=== PATIENT | female | born 1940 | race Caucasian/White ===

== ENCOUNTER 2020-06-08 12:26 | Emergency (ER) | payer MEDICARE ==
[2020-06-08 13:42] LABS: #Lymphocytes 1.7 thou/uL (1.20-3.40); #Monocytes 0.6 thou/uL (0.11-0.59); %Basophils 0.6 % (0.0-1.0); %Lymphocytes 26.6 % (21.0-51.0); %Monocytes 9.3 % (0.0-10.0); %Neutrophils 63.5 % (42.0-75.0); Hemoglobin 14.8 g/dL (12.0-16.0); Mean Corpuscular HGB CONC 32.2 g/dL (32.0-36.0); Mean Corpuscular Hemoglobin 28.7 pg (27.0-31.0); Mean Corpuscular Volume 89.1 fL (78.0-98.0); Mean Platelet Volume 9.4 fL (7.4-10.4); Platelet Count 157 thou/uL (130-400); RBC Distribution Width 11.7 % (11.5-14.5); Red Blood Cell (RBC) Count 5.16 mill/uL (4.20-5.40); White Blood Cell (WBC) Count 6.3 thou/uL (4.8-10.8)
[2020-06-08] MEDS ORDERED: Lidocaine Viscous Sol 2% 15 ml UD Cup ONE (13:47)
[2020-06-08] MEDS ORDERED: Ondansetron ODT 4 MG TAB ONE (13:47)
[2020-06-08] MEDS ORDERED: Famotidine 20 MG TAB ONE (13:47)
[2020-06-08] MEDS ORDERED: Mag-Al Plus 1200 MG/1200 MG/120 MG/30 ML UDCUP ONE (13:47)
[2020-06-08 13:59] LABS: ALT (SGPT) 30 U/L (8-55); AST (SGOT) 24 U/L (5-34); Albumin 3.5 g/dL (3.4-4.8); Alkaline Phosphatase 45 U/L (40-110); Anion Gap 20 mmol/L (10-20); BUN (Urea Nitrogen) 21 mg/dL (9.8-20.1); Bilirubin, Total 0.4 mg/dL (0.2-1.2); Calc. Creatinine Clearance 0 mL/min (70-130); Calcium 9.1 mg/dL (7.8-10.44); Carbon Dioxide 24 mmol/L (23-31); Chloride 99 mmol/L (98-107); Estimated GFR-MDRD 49; Globulin 3.3 g/dL (2.4-3.5); Glucose 392 mg/dL (83-110); Lipase 13 U/L (8-78); Protein, Total 6.8 g/dL (6.0-8.3); Sodium 140 mmol/L (136-145)
[2020-06-08 14:11] LABS: Potassium 2.8 mmol/L (3.5-5.1)
[2020-06-08] MEDS ORDERED: Aspirin 325 MG TAB ONE (14:25)
[2020-06-08] MEDS ORDERED: Potassium Chloride 20 MEQ TAB ONE (14:25)
[2020-06-08 14:43] LABS: CKMB 0.9 ng/mL (0-6.6)
--- NOTE | 2020-06-08 15:15 | RAD ---
PORTABLE CHEST: 06/08/20 HISTORY: Dyspnea. No comparison. The lungs appear clear of infiltrate. Heart is mildly prominent. Vascular markings are upper normal. IMPRESSION: No focal consolidation or confluent infiltrate. Hazy ground glass infiltrates in the mid lung pavon cannot be completely excluded if there is concern of COVID pneumonia. Recommend follow-up if symptoms persist. POS: OFF
[2020-06-08] MEDS ORDERED: Magnesium Oxide 400 MG TAB PO ONE (16:06)
[2020-06-08 16:27] LABS: Bilirubin Negative (Negative); Blood, Urine Trace (Negative); Clarity Cloudy (Clear); Glucose, Urine (Dipstick) >=1000 mg/dL (Negative); Ketone, Urine 40 mg/dL (Negative); Leukocyte Negative (Negative); Nitrite Negative (Negative); Protein, Urine (Dipstick) > or equal to 300 mg/dL (Neg-Trace); Urobilinogen 0.2 mg/dL (Less than 2); pH, Urine 5.5 (5.0-9.0)
[2020-06-08 16:28] LABS: Bacteria/HPF 4+ HPF (None Seen); RBC/HPF 0-3 HPF (0-3); Specific Gravity, Urine 1.028 (1.002-1.036); WBC/HPF Greater than 50 HPF (0-3)
[2020-06-08] MEDS ORDERED: cefTRIAXone\\ROCEPHIN 1 GM VIAL ONE (16:39)
== END 2020-06-08 16:50 | disposition short-term general hospital (02) ==
LOC: MADERS 12:26
DX: E87.6 Hypokalemia (principal); R94.31 Abnormal electrocardiogram [ECG] [EKG]; N39.0 Urinary tract infection, site not specified; E11.9 Type 2 diabetes mellitus without complications; I10 Essential (primary) hypertension; Z79.82 Long term (current) use of aspirin; Z79.899 Other long term (current) drug therapy; Z79.4 Long term (current) use of insulin
CPT/HCPCS: 71045; 80053; 81003; 81015; 82553; 83690; 83735; 84484; 85025; 87077; 87086; 87186; 93005; 96374; J0696; Q0162

== ENCOUNTER 2020-06-20 14:37 | Inpatient (IN) | payer MEDICARE ==
[2020-06-20 16:33] VITALS: BMI 35.2
[2020-06-20] MEDS ORDERED: Loratadine 10 MG TAB PO PRN (17:36)
[2020-06-20] MEDS ORDERED: Loperamide HCl 2 MG CAP PO PRN (17:37)
[2020-06-20] MEDS ORDERED: Sodium Chloride 0.65% Nasal 44 ML BOT EA NARE PRN (17:41)
[2020-06-20] MEDS ORDERED: Senokot S 8.6-50 MG TAB PO PRN (17:42)
[2020-06-20] MEDS ORDERED: Dextrose 50% Abboject 50 ML SYRINGE IVP PRN (17:45)
[2020-06-20] MEDS ORDERED: Dextrose 5% in Water 1,000 ML IV PRN (17:45)
[2020-06-20] MEDS ORDERED: HumaLOG 300 UNITS/3 ML VIAL SC PRN (17:45)
[2020-06-20] MEDS: Simvastatin 5 MG TAB PO SCH (20:09)
[2020-06-20] MEDS: Melatonin 3 MG TAB PO SCH (20:09)
[2020-06-21 05:40] LABS: #Basophils 0.2 thou/uL (0.0-0.2); #Eosinphils 0.4 thou/uL (0.0-0.7); #Lymphocytes 3.5 thou/uL (1.20-3.40); #Monocytes 1.2 thou/uL (0.11-0.59); #Neutrophils 7.6 thou/uL (1.40-6.50); %Basophils 1.3 % (0.0-1.0); %Eosinophils 3.2 % (0.0-10.0); %Lymphocytes 27.1 % (21.0-51.0); %Monocytes 9.1 % (0.0-10.0); %Neutrophils 59.3 % (42.0-75.0); Hemoglobin 14.8 g/dL (12.0-16.0); Mean Corpuscular HGB CONC 33.1 g/dL (32.0-36.0); Mean Corpuscular Hemoglobin 28.8 pg (27.0-31.0); Mean Platelet Volume 8.7 fL (7.4-10.4); Platelet Count 322 thou/uL (130-400); RBC Distribution Width 11.5 % (11.5-14.5); Red Blood Cell (RBC) Count 5.13 mill/uL (4.20-5.40); White Blood Cell (WBC) Count 12.9 thou/uL (4.8-10.8)
[2020-06-21 05:54] LABS: ALT (SGPT) 40 U/L (8-55); AST (SGOT) 19 U/L (5-34); Alkaline Phosphatase 41 U/L (40-110); Anion Gap 17 mmol/L (10-20); BUN (Urea Nitrogen) 56 mg/dL (9.8-20.1); Bilirubin, Total 0.8 mg/dL (0.2-1.2); Calc. Creatinine Clearance 59 mL/min (70-130); Calcium 9.4 mg/dL (7.8-10.44); Carbon Dioxide 22 mmol/L (23-31); Chloride 103 mmol/L (98-107); Globulin 3.2 g/dL (2.4-3.5); Glucose 159 mg/dL (83-110); Potassium 3.6 mmol/L (3.5-5.1); Protein, Total 6.2 g/dL (6.0-8.3); Sodium 138 mmol/L (136-145)
[2020-06-21] MEDS: HumaLOG 300 UNITS/3 ML VIAL SC SCH ×3 (08:48→17:16)
[2020-06-21] MEDS: Lantus 1000 UNITS/10 ML VIAL SC SCH ×2 (08:48→20:50)
[2020-06-21] MEDS: Fluticasone Propionate Nasal Spray 16 gm Bottle NASAL SCH (08:51)
[2020-06-21] MEDS: Aspirin Chewable 81 MG TAB PO SCH (08:52)
[2020-06-21] MEDS: Alogliptin 25 MG TAB PO SCH (08:52)
[2020-06-21] MEDS: Enoxaparin Sodium 40 MG/0.4 ML SYRINGE SC SCH (08:52)
[2020-06-21] MEDS: Amlodipine 5 MG TAB PO SCH (08:52)
[2020-06-21] MEDS: Losartan Potassium 50 MG TAB PO SCH (08:52)
[2020-06-21] MEDS: Saccharomyces boulardii 250 MG CAP PO SCH (08:53)
[2020-06-21] MEDS: Cefdinir 300 MG CAP PO SCH (08:53)
[2020-06-21] MEDS: Furosemide 20 MG TAB PO SCH (08:53)
[2020-06-21] MEDS: Fish Oil 1,000 MG CAP PO SCH (08:53)
[2020-06-21] MEDS: Hydrochlorothiazide 25 MG TAB PO SCH (08:53)
[2020-06-21] MEDS: Famotidine 20 MG TAB PO SCH (08:53)
[2020-06-21] MEDS ORDERED: Lantus 1000 UNITS/10 ML VIAL SC SCH (09:00)
[2020-06-21 11:48] LABS: Hemoglobin A1c 10.6 % (4.0-6.0)
[2020-06-21] MEDS: Melatonin 3 MG TAB PO SCH (20:42)
[2020-06-21] MEDS: Simvastatin 5 MG TAB PO SCH (20:42)
[2020-06-22] MEDS: Levothyroxine Sodium 25 MCG TAB PO SCH (05:41)
[2020-06-22] MEDS: HumaLOG 300 UNITS/3 ML VIAL SC SCH ×3 (07:52→17:16)
[2020-06-22] MEDS: Fish Oil 1,000 MG CAP PO SCH (07:58)
[2020-06-22] MEDS: Losartan Potassium 50 MG TAB PO SCH (07:58)
[2020-06-22] MEDS: Cefdinir 300 MG CAP PO SCH (07:58)
[2020-06-22] MEDS: Famotidine 20 MG TAB PO SCH (07:58)
[2020-06-22] MEDS: Amlodipine 5 MG TAB PO SCH (07:59)
[2020-06-22] MEDS: Saccharomyces boulardii 250 MG CAP PO SCH (07:59)
[2020-06-22] MEDS: Alogliptin 25 MG TAB PO SCH (07:59)
[2020-06-22] MEDS: Aspirin Chewable 81 MG TAB PO SCH (07:59)
[2020-06-22] MEDS: Enoxaparin Sodium 40 MG/0.4 ML SYRINGE SC SCH (07:59)
[2020-06-22] MEDS: Hydrochlorothiazide 25 MG TAB PO SCH (07:59)
[2020-06-22] MEDS: Furosemide 20 MG TAB PO SCH (07:59)
[2020-06-22] MEDS: Lantus 1000 UNITS/10 ML VIAL SC SCH ×2 (08:06→20:44)
[2020-06-22] MEDS: Fluticasone Propionate Nasal Spray 16 gm Bottle NASAL SCH (08:06)
[2020-06-22] MEDS: Melatonin 3 MG TAB PO SCH (20:44)
[2020-06-22] MEDS: Simvastatin 5 MG TAB PO SCH (20:44)
--- NOTE | 2020-06-23 05:11 | HP ---
Admitted to [facility] on 06/20/2020 CHIEF COMPLAINT: Weakness following hospitalization for COVID pneumonia. HISTORY OF PRESENT ILLNESS: The patient is a 79-year-old white female who lives alone and is independent of her ADLs. She has a history of diabetes, that is insulin dependent; hypertension; peripheral neuropathy; chronic kidney disease; hypothyroidism; and she has problems with urinary incontinence. The patient was hospitalized at [facility] from 06/08 until 06/20/2020 for COVID pneumonia, complicated by hypoxic respiratory failure. She was treated with 5 days of remdesivir and required supplemental O2. She received IV dexamethasone and azithromycin and cefdinir. She gradually improved. Her O2 saturation improved, where she no longer required the supplemental O2. She was found to have urinary tract infection with E coli with contreras-sensitivity. She had originally received IV antibiotics, which covered this, and then was switched to oral cefdinir without any problems from this. She was left very weak and not at a point where she could return to independent living. It was elected to move her to [facility] for physical therapy and occupational therapy in an effort to improve her deconditioning and general functional capability. Her JGFN-RYKRW-5 rapid RNA test was positive on 06/08. She had completed over a 10-day period of isolation and was feeling better and free of any fever for the last several days prior to her arrival here at [facility]. The patient was seen early on the morning of 06/21, said she was feeling a lot better, she was not coughing, she had not had any fever, she had not been short of breath, she was just weak. She said her appetite has been good. She said at home she takes Levemir 70 units twice a day and also she takes NovoLog 25 units before meals. During this recent hospitalization, she has just been receiving 70 units of Lantus once a day and the aggressive sliding scale. PAST HISTORY: 1. Diabetes, insulin requiring. 2. Hypertension. 3. Urinary incontinence. 4. Chronic kidney disease. 5. Moderate hyperlipidemia. 6. Hypothyroidism. 7. History of colon polyps, removed. 8. The patient has had a hysterectomy. 9. Laparoscopic cholecystectomy. 10. Colonoscopy with removal of cancerous nodule in 2016. 11. Colonoscopy in 2017, normal. MEDICATIONS: Present medicines: 1. Januvia 100 mg once a day. 2. Amlodipine 5 mg daily. 3. Aspirin 81 mg daily. 4. Cefdinir 600 mg daily. 5. Famotidine 20 mg daily. 6. Fish oil 1000 mg daily. 7. Flonase nasal inhaler two sprays in each nostril daily. 8. Furosemide 20 mg daily. 9. Hydrochlorothiazide 12.5 mg daily. 10. Levemir 70 units subcutaneously b.i.d. 11. NovoLog 25 units before meals. 12. Levothyroxine 25 mcg daily. 13. Imodium 2 mg b.i.d. p.r.n. diarrhea. 14. Claritin 10 mg daily as needed for nasal congestion. 15. Losartan 100 mg daily. 16. Melatonin 6 mg at bedtime. 17. Metoprolol succinate 25 mg daily. 18. Florastor 250 mg daily. 19. Senokot-S two b.i.d. p.r.n. 20. Simvastatin [address] [place] nasal spray two sprays in each nostril q.i.d. as needed. ALLERGIES: NO KNOWN ALLERGIES. IMMUNIZATIONS: The patient received a Pneumovax 23 this morning IM. REVIEW OF SYSTEMS: GENERAL: The patient said that the last few day she has had no fever, she has felt better. She does not know if her weight has changed. EARS, NOSE, AND THROAT: The patient said she is not having any nasal congestion or drainage. She has had no change in her vision. PULMONARY: The patient said her breathing is good. She is not coughing. She does not feel congested. CARDIOVASCULAR: The patient has had no chest pain. GI: The patient has had no nausea or vomiting. She did have some loose stools, but these are better. The patient also was having a little incontinence of stools. : The patient is incontinent of urine. NEUROLOGIC: The patient denies any headaches. The patient has not had any confusional problems. She has some generalized weakness, that is nonfocal. ADLS: The patient lives independently and drives and she manages all her ADLs. She does have trouble with urinary incontinence and sometimes fecal incontinence. HABITS: Alcohol, none. Tobacco, none. SOCIAL HISTORY: The patient is , who lives alone. PHYSICAL EXAMINATION: GENERAL: A very pleasant 79-year-old white female who is sitting up in bed. She is alert and oriented x3, recognizes me and understands where she is and what has recently happened to her. VITAL SIGNS: Temperature 98.5, pulse 65, respirations 18, O2 saturation 93% on room air, and blood pressure 120/72. Her weight is 204 and her height is 65 inches. HEAD: Normocephalic and atraumatic. EARS: TMs are clear. EYES: Pupils are equal, round, and reactive. Sclerae nonicteric. NOSE: Normal. MOUTH AND THROAT: Normal. NECK: Carotids are equal and strong. No bruits. Thyroid not enlarged. LUNGS: Clear. HEART: Regular rate. No murmurs. ABDOMEN: Soft. No organomegaly. No areas of tenderness. EXTREMITIES: Lower extremities have no edema. SKIN: There is no rash. NEUROLOGIC: The patient is alert and oriented x3, has no focal weakness but generalized weakness. LABORATORY DATA: hemoglobin and hematocrit 14.8 and 44.6, white blood cell count 12,900 with 59% segs and 27% lymphocytes, and platelet count of 322,000. Her sodium 139, potassium 3.6, BUN 56, creatinine 1.15, and GFR 46. Her lab from 08/2019 showed BUN of 21, creatinine 0.96, and GFR 56. IMPRESSION: 1. Generalized weakness and deconditioning: a. Following hospitalization for COVID pneumonia. 2. Hospitalized at [facility] from 06/08 until 06/20/2020 for COVID pneumonia. a. ADPX-FEESB-3 rapid RNA test positive on 06/08. b. Treated with remdesivir, IV antibiotics, IV dexamethasone, and supplemental O2. c. COVID pneumonia clinically resolved. d. Completed a 10-day period of isolation. 3. Diabetes, type 2, insulin dependent. a. History of poor control. 4. Hypertension. 5. Urinary tract infection. a. With Escherichia coli with contreras-sensitivity. b. Completing a course of cefdinir. 6. Hypothyroidism. 7. Hyperlipidemia. 8. Peripheral neuropathy. 9. Urinary incontinence. PLAN: The patient has been admitted to [facility] for physical therapy and occupational therapy to try to help her convalesce from this recent COVID infection, complicated by the COVID pneumonia. Her functional capabilities have been markedly diminished as she had been living independently. She will be placed back on her usual schedule of Levemir and NovoLog. We will start her on 60 units of Lantus b.i.d. instead of the 70 and work this back up as if needed. We will start her on 20 units of NovoLog before meals instead of the 25 and work this up if needed. We will stop the sliding scale. We will complete an additional 5 days of the cefdinir for the UTI. We will continue her routine medicines. We will place her on Lovenox as a DVT prophylaxis, particularly with this hyper-inflammatory state from the recent COVID infection. The patient has completed her isolation period and will not be isolated here. CODE STATUS: Full code. Job ID: [id number] [facility]TDD
--- NOTE | 2020-06-23 05:24 | PRG ---
DATE OF SERVICE: 06/22/2020 SUBJECTIVE: The patient says she feels better today. She has already been around for physical therapy this morning. She ate a good breakfast, but she is tired now. She is not having any trouble with her breathing. OBJECTIVE: GENERAL: The patient is sitting up in a wheelchair. She is alert, talkative, knows me, appears in no distress. VITAL SIGNS: Shows a temperature 98, pulse 68, respirations 18, O2 saturation 96% on room air, and blood pressure 109/60. LUNGS: Clear. HEART: Regular rate. EXTREMITIES: Just trace edema. LABORATORY DATA: FBS this morning was 142. Her hemoglobin A1c done on 06/21 was 10.6. ASSESSMENT: 1. Generalized weakness and deconditioning. a. Following hospitalization at [facility] from 06/08 until 06/20 for COVID pneumonia. 2. Hospitalized at [facility] from 06/08 to 06/20 for COVID pneumonia. 3. Diabetes type 2. a. Poor control. Hemoglobin A1c 10.6. b. Back on home schedule of Lanbereniceus and NovoLog. 4. Urinary tract infection. a. Escherichia coli with contreras sensitivity completing antibiotics. 5. Hypertension. 6. Hypothyroidism. PLAN: The patient is doing much better. We will continue present care. Continue PT and OT. Job ID: [id number] [facility]TDD
[2020-06-23] MEDS: Levothyroxine Sodium 25 MCG TAB PO SCH (05:55)
[2020-06-23] MEDS: Losartan Potassium 50 MG TAB PO SCH (08:27)
[2020-06-23] MEDS: Enoxaparin Sodium 40 MG/0.4 ML SYRINGE SC SCH (08:27)
[2020-06-23] MEDS: Cefdinir 300 MG CAP PO SCH (08:27)
[2020-06-23] MEDS: Fish Oil 1,000 MG CAP PO SCH (08:28)
[2020-06-23] MEDS: Saccharomyces boulardii 250 MG CAP PO SCH (08:28)
[2020-06-23] MEDS: Aspirin Chewable 81 MG TAB PO SCH (08:28)
[2020-06-23] MEDS: Hydrochlorothiazide 25 MG TAB PO SCH (08:28)
[2020-06-23] MEDS: Furosemide 20 MG TAB PO SCH (08:29)
[2020-06-23] MEDS: Amlodipine 5 MG TAB PO SCH (08:29)
[2020-06-23] MEDS: Famotidine 20 MG TAB PO SCH (08:30)
[2020-06-23] MEDS: Lantus 1000 UNITS/10 ML VIAL SC SCH ×2 (08:30→21:37)
[2020-06-23] MEDS: Alogliptin 25 MG TAB PO SCH (08:30)
[2020-06-23] MEDS: HumaLOG 300 UNITS/3 ML VIAL SC SCH ×3 (08:32→17:20)
[2020-06-23] MEDS: Fluticasone Propionate Nasal Spray 16 gm Bottle NASAL SCH (08:39)
[2020-06-23] MEDS: Melatonin 3 MG TAB PO SCH (21:37)
[2020-06-23] MEDS: Simvastatin 5 MG TAB PO SCH (21:38)
[2020-06-24] MEDS: Levothyroxine Sodium 25 MCG TAB PO SCH (06:09)
[2020-06-24] MEDS: Fluticasone Propionate Nasal Spray 16 gm Bottle NASAL SCH (09:04)
[2020-06-24] MEDS: Lantus 1000 UNITS/10 ML VIAL SC SCH ×2 (09:05→21:53)
[2020-06-24] MEDS: HumaLOG 300 UNITS/3 ML VIAL SC SCH ×3 (09:07→17:12)
[2020-06-24] MEDS: Hydrochlorothiazide 25 MG TAB PO SCH (09:08)
[2020-06-24] MEDS: Losartan Potassium 50 MG TAB PO SCH (09:08)
[2020-06-24] MEDS: Fish Oil 1,000 MG CAP PO SCH (09:08)
[2020-06-24] MEDS: Saccharomyces boulardii 250 MG CAP PO SCH (09:08)
[2020-06-24] MEDS: Alogliptin 25 MG TAB PO SCH (09:08)
[2020-06-24] MEDS: Famotidine 20 MG TAB PO SCH (09:08)
[2020-06-24] MEDS: Amlodipine 5 MG TAB PO SCH (09:09)
[2020-06-24] MEDS: Aspirin Chewable 81 MG TAB PO SCH (09:10)
[2020-06-24] MEDS: Furosemide 20 MG TAB PO SCH (09:10)
[2020-06-24] MEDS: Enoxaparin Sodium 40 MG/0.4 ML SYRINGE SC SCH (09:11)
--- NOTE | 2020-06-24 11:35 | PRG ---
DATE OF SERVICE: 06/24/2020 SUBJECTIVE: The patient says she is feeling better. She is feeling stronger. Her appetite has been better. She is walking a little better. She is having no trouble with her breathing. She is sleeping good. OBJECTIVE: GENERAL: The patient is sitting up in bed. She is alert, talkative, appears comfortable, in no distress. VITAL SIGNS: Her temperature is 98.3, pulse 83, respirations 16, O2 saturation 94% on room air, blood pressure 161/72. LUNGS: Clear. HEART: Regular rate. EXTREMITIES: No edema. LABORATORY DATA: Her FBS this morning was 192, yesterday morning 142. ASSESSMENT: 1. Generalized weakness and deconditioning. a. Following hospitalization for COVID pneumonia. b. Improving as of 06/24. 2. Hospitalized at [facility] from 07/08 until 06/20 for COVID pneumonia. a. SARS-CoV-2 rapid RNA test positive on 06/08. b. Treated with remdesivir, IV antibiotics, IV dexamethasone, and supplemental O2. c. COVID pneumonia, resolved. d. Completed a 10-day period of isolation. 3. Diabetes type 2, insulin requiring. a. Back on her home schedule of Lantus and NovoLog. 4. Hypertension. 5. Urinary tract infection. a. With Escherichia coli with pansensitivity. b. Completed a course of cefdinir. 6. Hypothyroidism. 7. Hyperlipidemia. 8. Peripheral neuropathy. 9. Urinary incontinence, chronic. PLAN: The patient is doing much better. We will continue present care. Continue PT and OT. Job ID: [id number] [facility]
[2020-06-24] MEDS: Simvastatin 5 MG TAB PO SCH (21:51)
[2020-06-24] MEDS: Melatonin 3 MG TAB PO SCH (21:52)
[2020-06-25] MEDS: Levothyroxine Sodium 25 MCG TAB PO SCH (05:19)
[2020-06-25] MEDS: Enoxaparin Sodium 40 MG/0.4 ML SYRINGE SC SCH (08:08)
[2020-06-25] MEDS: Fluticasone Propionate Nasal Spray 16 gm Bottle NASAL SCH (08:08)
[2020-06-25] MEDS: Famotidine 20 MG TAB PO SCH (08:08)
[2020-06-25] MEDS: Alogliptin 25 MG TAB PO SCH (08:08)
[2020-06-25] MEDS: Fish Oil 1,000 MG CAP PO SCH (08:08)
[2020-06-25] MEDS: Hydrochlorothiazide 25 MG TAB PO SCH (08:09)
[2020-06-25] MEDS: Saccharomyces boulardii 250 MG CAP PO SCH (08:09)
[2020-06-25] MEDS: Losartan Potassium 50 MG TAB PO SCH (08:09)
[2020-06-25] MEDS: Aspirin Chewable 81 MG TAB PO SCH (08:10)
[2020-06-25] MEDS: Furosemide 20 MG TAB PO SCH (08:10)
[2020-06-25] MEDS: HumaLOG 300 UNITS/3 ML VIAL SC SCH ×3 (08:10→17:05)
[2020-06-25] MEDS: Amlodipine 5 MG TAB PO SCH (08:10)
[2020-06-25] MEDS: Lantus 1000 UNITS/10 ML VIAL SC SCH ×2 (08:11→20:36)
--- NOTE | 2020-06-25 10:52 | PRG ---
DATE OF SERVICE: 06/25/2020 SUBJECTIVE: The patient says she is doing good this morning. She has already been working with physical therapy. Her strength is improving. Already she has walked up to 150 feet twice this morning with caregiver assistance. OBJECTIVE: GENERAL: The patient is sitting up in a wheelchair, waiting on her breakfast. She is alert, talkative, appears in no distress. VITAL SIGNS: Her temperature is 98.5, pulse 86, respirations 18, O2 saturation 96% on room air, blood pressure 122/73. LUNGS: Clear. HEART: Regular rate. LABORATORY DATA: Her FBS this morning was 205, last night was 107. ASSESSMENT: 1. Generalized weakness and deconditioning. a. Following hospitalization for COVID pneumonia. b. Improving. Walking up to 150 feet with just caregiver accompanying her. Transferring better as of 06/25/2020. 2. Hospitalized at [facility] from 06/08 until 06/20 for COVID pneumonia. a. SARS-CoV-2 rapid RNA test positive on 06/08. b. Treated with remdesivir, IV antibiotics, IV dexamethasone and supplemental O2. c. COVID pneumonia resolved. d. Completed a 10-day period of isolation. 3. Diabetes type 2, insulin requiring. a. Back on her home schedule and reasonably controlled as of 06/25/2020. 4. Hypertension, controlled. 5. Urinary tract infection. a. E coli with pansensitivity. b. Completed a course of cefdinir. c. Asymptomatic. 6. Hypothyroidism. 7. Hyperlipidemia. 8. Peripheral neuropathy. 9. Urinary incontinence, chronic. PLAN: The patient is making excellent progress. We will continue PT and OT and present medications. Job ID: [id number] [facility]
[2020-06-25] MEDS: Melatonin 3 MG TAB PO SCH (20:37)
[2020-06-25] MEDS: Simvastatin 5 MG TAB PO SCH (20:37)
[2020-06-26] MEDS: Levothyroxine Sodium 25 MCG TAB PO SCH (05:05)
[2020-06-26] MEDS: Lantus 1000 UNITS/10 ML VIAL SC SCH ×2 (08:28→21:56)
[2020-06-26] MEDS: HumaLOG 300 UNITS/3 ML VIAL SC SCH ×4 (08:29→17:09)
[2020-06-26] MEDS: Losartan Potassium 50 MG TAB PO SCH (08:32)
[2020-06-26] MEDS: Alogliptin 25 MG TAB PO SCH (08:33)
[2020-06-26] MEDS: Amlodipine 5 MG TAB PO SCH (08:33)
[2020-06-26] MEDS: Aspirin Chewable 81 MG TAB PO SCH (08:34)
[2020-06-26] MEDS: Saccharomyces boulardii 250 MG CAP PO SCH (08:34)
[2020-06-26] MEDS: Fish Oil 1,000 MG CAP PO SCH (08:34)
[2020-06-26] MEDS: Famotidine 20 MG TAB PO SCH (08:34)
[2020-06-26] MEDS: Hydrochlorothiazide 25 MG TAB PO SCH (08:34)
[2020-06-26] MEDS: Furosemide 20 MG TAB PO SCH (08:34)
[2020-06-26] MEDS: Enoxaparin Sodium 40 MG/0.4 ML SYRINGE SC SCH (08:35)
[2020-06-26] MEDS: Fluticasone Propionate Nasal Spray 16 gm Bottle NASAL SCH (08:35)
--- NOTE | 2020-06-26 09:35 | PRG ---
DATE OF SERVICE: 06/26/2020 SUBJECTIVE: The patient said yesterday was a good day. She did good with the therapy and had a good night. This morning, she has been up and walked to the bathroom with help and had a bowel movement. When she stood up, she got a little dizzy, that has passed. She is just lying down and resting. She is not having any shortness of breath or chest pain. Did not get diaphoretic, nauseated, or vomiting. Suspect she may have had a little mild orthostatic episode from initially standing, then sitting and straining, and then re-standing; this seems to have passed. OBJECTIVE: GENERAL: The patient is alert, appears in no distress. VITAL SIGNS: Her temperature is 98, pulse 78, respirations 16, O2 saturation 97% on room air, blood pressure 138/82. LUNGS: Clear. HEART: Regular rate. EXTREMITIES: No edema. LABORATORY DATA: Her fasting blood sugar this morning pending. Last night, glucose was 250. Yesterday morning 205. ASSESSMENT: 1. Generalized weakness and deconditioning. a. Following hospitalization for COVID pneumonia. b. Improving, walking up to 150 feet with caregiver accompanying her, transferring better as of 06/26. 2. Hospitalized at [facility] from 06/08 until 06/20 for COVID pneumonia. a. SARS-CoV-2 rapid RNA test positive on 06/08. b. Treated with remdesivir, IV antibiotics, IV dexamethasone, and supplemental O2. c. COVID pneumonia resolved. d. Completed a 10 day period of isolation. 3. Diabetes type 2 insulin requiring. a. Blood sugars running a little higher yesterday as of 06/26. 4. Hypertension. 5. Urinary tract infection. a. Escherichia coli with pansensitivity. b. Completed a course of cefdinir. c. Remains asymptomatic. 6. Hypothyroidism. 7. Hyperlipidemia. 8. Peripheral neuropathy. 9. Urinary incontinence, chronic. PLAN: The patient had a little mild dizzy spell this morning that may have been orthostatic or even a vasovagal episode following a bowel movement, this seems to have passed. We will watch. We will increase patient's NovoLog back to 22 units before each meal and her Lantus to 65 units. She was on 70 of Lantus b.i.d. and 25 of Humalog before each meal. Continue PT and OT. Her insurance has reviewed things and tentatively they are looking for her to be discharged by the . Job ID: [id number] [facility]
[2020-06-26] MEDS: Melatonin 3 MG TAB PO SCH (21:53)
[2020-06-26] MEDS: Simvastatin 5 MG TAB PO SCH (21:56)
[2020-06-26] MEDS: Acetaminophen 325 MG TAB PO PRN (21:57)
[2020-06-27] MEDS: Levothyroxine Sodium 25 MCG TAB PO SCH (05:46)
[2020-06-27] MEDS: HumaLOG 300 UNITS/3 ML VIAL SC SCH ×3 (08:21→19:11)
[2020-06-27] MEDS: Lantus 1000 UNITS/10 ML VIAL SC SCH ×2 (08:24→20:59)
[2020-06-27] MEDS: Saccharomyces boulardii 250 MG CAP PO SCH (08:25)
[2020-06-27] MEDS: Fish Oil 1,000 MG CAP PO SCH (08:25)
[2020-06-27] MEDS: Alogliptin 25 MG TAB PO SCH (08:25)
[2020-06-27] MEDS: Aspirin Chewable 81 MG TAB PO SCH (08:25)
[2020-06-27] MEDS: Hydrochlorothiazide 25 MG TAB PO SCH (08:25)
[2020-06-27] MEDS: Losartan Potassium 50 MG TAB PO SCH (08:25)
[2020-06-27] MEDS: Furosemide 20 MG TAB PO SCH (08:25)
[2020-06-27] MEDS: Famotidine 20 MG TAB PO SCH (08:25)
[2020-06-27] MEDS: Enoxaparin Sodium 40 MG/0.4 ML SYRINGE SC SCH (08:26)
[2020-06-27] MEDS: Amlodipine 5 MG TAB PO SCH (08:26)
[2020-06-27] MEDS: Fluticasone Propionate Nasal Spray 16 gm Bottle NASAL SCH (08:26)
--- NOTE | 2020-06-27 09:50 | PRG ---
DATE OF SERVICE: 06/27/2020 SUBJECTIVE: The patient says she is doing good. She is doing better with therapy and walking further. She does best in the morning, by the afternoon, she seems to tire a little quicker. She is transferring better. She has not had anymore of the little lightheaded spell that occurred after she stood after her bowel movement yesterday morning. Her insurance is anticipating the end of coverage date of 07/02. OBJECTIVE: GENERAL: The patient is alert, talkative, appears very comfortable, in no distress. VITAL SIGNS: Show a temperature of 97.8, pulse 77, respirations 18, O2 saturation 96% on room air, blood pressure 146/77. Her blood pressure this morning was a little higher before her medication 173/75. LUNGS: Clear. HEART: Regular rate. LABORATORY DATA: FBS this morning 181. ASSESSMENT: 1. Generalized weakness and deconditioning. a. Following hospitalization for COVID pneumonia. b. Gradually improving. Walking up to 150 feet with caregiver accompanying her. Transferring better as of 06/27. 2. Hospitalized at [facility] from 06/08 until 06/20 for COVID pneumonia. a. SARS-CoV-2 rapid RNA test positive on 06/08. b. Treated with remdesivir, IV antibiotics, IV dexamethasone and supplemental O2. c. COVID pneumonia resolved. d. Completed a 10-day period of isolation. 3. Diabetes type 2, insulin requiring. a. Blood sugars are gradually improving as of 06/27. 4. Hypertension. 5. Urinary tract infection. a. Escherichia coli with contreras sensitivity. b. Completed her full course of cefdinir. c. Remains asymptomatic. 6. Hypothyroidism. 7. Hyperlipidemia. 8. Peripheral neuropathy. 9. Urinary incontinence, chronic. PLAN: The patient is doing better. Her strength is improving. PT and OT will continue working with her. They will be focusing on her self-care. I visited with the patient about her insurance coverage may give out as of . She lives alone at home. Does not have anyone that would come in and assist her. She is improving. She will explore these options for her self-care with home health and OT will be focusing on her continual self-care without assistance in the home if this is what she elects to do. Job ID: [id number] [facility]
[2020-06-27] MEDS: Melatonin 3 MG TAB PO SCH (21:00)
[2020-06-27] MEDS: Simvastatin 5 MG TAB PO SCH (21:00)
[2020-06-28] MEDS: Levothyroxine Sodium 25 MCG TAB PO SCH (05:48)
[2020-06-28] MEDS: Fluticasone Propionate Nasal Spray 16 gm Bottle NASAL SCH (08:10)
[2020-06-28] MEDS: Lantus 1000 UNITS/10 ML VIAL SC SCH ×2 (08:10→20:40)
[2020-06-28] MEDS: Enoxaparin Sodium 40 MG/0.4 ML SYRINGE SC SCH (08:10)
[2020-06-28] MEDS: Fish Oil 1,000 MG CAP PO SCH (08:13)
[2020-06-28] MEDS: Losartan Potassium 50 MG TAB PO SCH (08:13)
[2020-06-28] MEDS: Famotidine 20 MG TAB PO SCH (08:13)
[2020-06-28] MEDS: Hydrochlorothiazide 25 MG TAB PO SCH (08:13)
[2020-06-28] MEDS: Saccharomyces boulardii 250 MG CAP PO SCH (08:14)
[2020-06-28] MEDS: Furosemide 20 MG TAB PO SCH (08:14)
[2020-06-28] MEDS: Alogliptin 25 MG TAB PO SCH (08:14)
[2020-06-28] MEDS: Amlodipine 5 MG TAB PO SCH (08:14)
[2020-06-28] MEDS: Aspirin Chewable 81 MG TAB PO SCH (08:15)
[2020-06-28] MEDS: HumaLOG 300 UNITS/3 ML VIAL SC SCH ×4 (08:24→16:59)
--- NOTE | 2020-06-28 09:00 | PRG ---
DATE OF SERVICE: 06/28/2020 SUBJECTIVE: The patient says she is feeling good. Arrangements are being made for her anticipated discharge on Thursday, 07/02. She does have a caregiver, who will come in and out and help with some of her instrumental ADLs and her son plans to stay with her for the first few days that she is home. She feels this is going to work out very well. She is making excellent progress with her therapy and was able to climb a few steps yesterday. OBJECTIVE: GENERAL: The patient is in Physical Therapy department working on a [employer] that works her arms and legs. She is talkative, looks very good and in no distress. VITAL SIGNS: Her temperature 98.7, pulse 83, respirations 17, O2 saturation 96% on room air, blood pressure 126/60. LUNGS: Clear. HEART: Regular rate. EXTREMITIES: No edema. LABORATORY DATA: Her FBS this morning 185. ASSESSMENT: 1. Generalized weakness and deconditioning. a. Following hospitalization for COVID pneumonia. b. Continued to improve, walking up to 150 feet with caregiver accompanying her, transferring better as of 06/28. 2. Hospitalized at [facility] from 06/08 until 06/20 for COVID pneumonia. a. SARS-CoV-2 rapid RNA test positive on 06/08. b. Treated with remdesivir, IV antibiotics, IV dexamethasone, and supplemental O2. c. COVID pneumonia, resolved. d. Completed a 10-day course of isolation. 3. Diabetes type 2 insulin requiring. Blood sugars gradually improving as of 06/28. 4. Hypertension. 5. Urinary tract infection. a. Urine culture grew E. coli with contreras sensitivity. b. Completed a course of cefdinir. c. Remains asymptomatic. 6. Hypothyroidism. 7. Hyperlipidemia. 8. Peripheral neuropathy. PLAN: The patient continues to improve. We will continue present care. Continue PT and OT. We will increase her Humalog before meals to 5 units. Arrange for PT to pick up operator on her care upon her discharge and continue in-home PT and OT. Job ID: [id number] [facility]
[2020-06-28] MEDS: Simvastatin 5 MG TAB PO SCH (20:38)
[2020-06-28] MEDS: Melatonin 3 MG TAB PO SCH (20:38)
[2020-06-29] MEDS: Levothyroxine Sodium 25 MCG TAB PO SCH (05:41)
[2020-06-29] MEDS: Lantus 1000 UNITS/10 ML VIAL SC SCH ×2 (08:02→20:58)
[2020-06-29] MEDS: HumaLOG 300 UNITS/3 ML VIAL SC SCH ×3 (08:03→17:02)
[2020-06-29] MEDS: Fluticasone Propionate Nasal Spray 16 gm Bottle NASAL SCH (08:03)
[2020-06-29] MEDS: Alogliptin 25 MG TAB PO SCH (08:04)
[2020-06-29] MEDS: Enoxaparin Sodium 40 MG/0.4 ML SYRINGE SC SCH (08:04)
[2020-06-29] MEDS: Famotidine 20 MG TAB PO SCH (08:04)
[2020-06-29] MEDS: Fish Oil 1,000 MG CAP PO SCH (08:04)
[2020-06-29] MEDS: Hydrochlorothiazide 25 MG TAB PO SCH (08:05)
[2020-06-29] MEDS: Aspirin Chewable 81 MG TAB PO SCH (08:05)
[2020-06-29] MEDS: Saccharomyces boulardii 250 MG CAP PO SCH (08:05)
[2020-06-29] MEDS: Losartan Potassium 50 MG TAB PO SCH (08:05)
[2020-06-29] MEDS: Furosemide 20 MG TAB PO SCH (08:05)
[2020-06-29] MEDS: Amlodipine 5 MG TAB PO SCH (08:05)
--- NOTE | 2020-06-29 11:11 | PRG ---
DATE OF SERVICE: 06/29/2020 SUBJECTIVE: The patient says she is doing very good. She is just tired. Therapy has been working her very well and she is making good progress. Her insurance has indicated that she will have to be discharged by Sunday 07/01. The patient said this would work for her. Her son is coming in that day. OBJECTIVE: GENERAL: The patient is alert, talkative. She is lying in bed with the head elevated and appears very comfortable and in no distress. VITAL SIGNS: Her temp is 98, pulse 73, blood pressure 153/71, respirations 18, O2 saturation 93% on room air. LUNGS: Clear. HEART: Regular rate. EXTREMITIES: No edema. LABORATORY DATA: Her FBS this morning was 169, yesterday at bedtime was 164. ASSESSMENT: 1. Generalized weakness and deconditioning. a. Following hospitalization for COVID pneumonia. b. Continued improvement, walking at least 150 feet with caregiver accompanying her, transferring well as of 06/29. 2. Hospitalized at [facility] from 06/08 until 06/20 for COVID pneumonia. a. SARS-CoV-2 rapid RNA test positive on 06/08. b. Treated with remdesivir, IV antibiotics, IV dexamethasone, and supplemental O2. c. COVID pneumonia, resolved. d. Completed a 10-day course of isolation. 3. Diabetes type 2, insulin requiring, controlled. 4. Hypertension. 5. Urinary tract infection. a. Urine culture grew E coli with pansensitivity. b. Completed a course of cefdinir. c. Remains asymptomatic. 6. Hypothyroidism. 7. Hyperlipidemia. 8. Peripheral neuropathy. PLAN: The patient is making excellent progress. We will continue present care. Anticipate discharge on Sunday 07/01. [facility] will crab picker on her care and arrange for continuation of in-home PT and OT. The patient's son will be staying with her and she also has a caregiver who will come in and help and will help some with her instrumental ADLs. Job ID: [id number] [facility]
[2020-06-29] MEDS: Acetaminophen 325 MG TAB PO PRN (19:42)
[2020-06-29] MEDS: Simvastatin 5 MG TAB PO SCH (20:56)
[2020-06-29] MEDS: Melatonin 3 MG TAB PO SCH (20:57)
[2020-06-30] MEDS: Levothyroxine Sodium 25 MCG TAB PO SCH (05:37)
[2020-06-30] MEDS: HumaLOG 300 UNITS/3 ML VIAL SC SCH ×3 (08:22→17:15)
[2020-06-30] MEDS: Lantus 1000 UNITS/10 ML VIAL SC SCH ×2 (08:24→20:16)
[2020-06-30] MEDS: Saccharomyces boulardii 250 MG CAP PO SCH (08:25)
[2020-06-30] MEDS: Enoxaparin Sodium 40 MG/0.4 ML SYRINGE SC SCH (08:26)
[2020-06-30] MEDS: Losartan Potassium 50 MG TAB PO SCH (08:26)
[2020-06-30] MEDS: Alogliptin 25 MG TAB PO SCH (08:26)
[2020-06-30] MEDS: Fluticasone Propionate Nasal Spray 16 gm Bottle NASAL SCH (08:26)
[2020-06-30] MEDS: Famotidine 20 MG TAB PO SCH (08:26)
[2020-06-30] MEDS: Aspirin Chewable 81 MG TAB PO SCH (08:27)
[2020-06-30] MEDS: Furosemide 20 MG TAB PO SCH (08:27)
[2020-06-30] MEDS: Fish Oil 1,000 MG CAP PO SCH (08:27)
[2020-06-30] MEDS: Hydrochlorothiazide 25 MG TAB PO SCH (08:27)
[2020-06-30] MEDS: Amlodipine 5 MG TAB PO SCH (08:33)
[2020-06-30] MEDS: Acetaminophen 325 MG TAB PO PRN (19:22)
[2020-06-30] MEDS: Simvastatin 5 MG TAB PO SCH (20:14)
[2020-06-30] MEDS: Melatonin 3 MG TAB PO SCH (20:15)
[2020-07-01] MEDS: Levothyroxine Sodium 25 MCG TAB PO SCH (05:09)
[2020-07-01] MEDS: Lantus 1000 UNITS/10 ML VIAL SC SCH (08:26)
[2020-07-01] MEDS: HumaLOG 300 UNITS/3 ML VIAL SC SCH ×2 (08:26→12:05)
[2020-07-01] MEDS: Enoxaparin Sodium 40 MG/0.4 ML SYRINGE SC SCH (08:29)
[2020-07-01] MEDS: Losartan Potassium 50 MG TAB PO SCH (08:29)
[2020-07-01] MEDS: Hydrochlorothiazide 25 MG TAB PO SCH (08:29)
[2020-07-01] MEDS: Alogliptin 25 MG TAB PO SCH (08:29)
[2020-07-01] MEDS: Amlodipine 5 MG TAB PO SCH (08:30)
[2020-07-01] MEDS: Aspirin Chewable 81 MG TAB PO SCH (08:30)
[2020-07-01] MEDS: Furosemide 20 MG TAB PO SCH (08:30)
[2020-07-01] MEDS: Fish Oil 1,000 MG CAP PO SCH (08:30)
[2020-07-01] MEDS: Famotidine 20 MG TAB PO SCH (08:30)
[2020-07-01] MEDS: Fluticasone Propionate Nasal Spray 16 gm Bottle NASAL SCH (08:31)
[2020-07-01] MEDS: Saccharomyces boulardii 250 MG CAP PO SCH (08:31)
[2020-07-01 08:32] VITALS: BP 173/77
[2020-07-01 09:32] VITALS: TEMP 98.2
--- NOTE | 2020-07-02 08:29 | DIS ---
DATE OF ADMISSION: 06/20/2020 DATE OF DISCHARGE: 07/01/2020 FINAL DIAGNOSES: 1. Generalized weakness and deconditioning. a. Following hospitalization for COVID pneumonia. b. Continued improvement. Walking at least 150 feet several times a day and transferring independently as of 06/30. 2. Hospitalized at [facility] from 06/08 until 06/20 for COVID pneumonia. a. CRIX-DJEMP-8 rapid RNA test positive on 06/08. b. Treated with remdesivir, IV antibiotics, IV dexamethasone, supplemental O2. c. COVID pneumonia resolved. d. Completed a 10-day course of isolation. 3. Diabetes type 2, insulin requiring, controlled. 4. Hypertension, controlled. 5. Urinary tract infection. a. Urine culture grew Escherichia coli with contreras-sensitivity. b. Completed a 7-day course of cefdinir. c. Remains asymptomatic. 6. Hypothyroidism. 7. Hyperlipidemia. 8. Peripheral neuropathy. HOSPITAL COURSE: The patient is a very pleasant 79-year-old white female, who lives at home and is independent of her ADLs and drives. She does have a lady who comes in who helps some with her house cleaning and occasionally does some shopping for her. The patient has a history of diabetes mellitus, requiring insulin by basal and preprandial dosing; hypertension; hypothyroidism; and peripheral neuropathy. The patient was hospitalized at [facility] from 06/08 until 06/20 for COVID pneumonia, presenting with fever, shortness of breath, and hypoxemia. Her DVAD-JEFMV-9 rapid RNA test was positive on 06/08. She was treated with remdesivir, IV antibiotics, IV dexamethasone, and supplemental O2 for COVID pneumonia. She improved and was able to maintain normal oxygenation without supplemental O2. She completed her IV antibiotics. She did develop urinary tract infection with E coli that had contreras-sensitivity, for which she completed a 7-day course of cefdinir and remains asymptomatic. She was transferred to [facility] on 06/20/2020 because of severe weakness and deconditioning following this COVID pneumonia. This was opportunity for Physical Therapy and Occupational Therapy to work with her in an effort to restore her to her premorbid functional capabilities and allow her to further convalesce from this COVID infection. During her hospitalization, the patient made very excellent progress. Her O2 saturation remained around 94% to 95% on room air. Blood pressure was well controlled. Her diabetes was controlled, gradually was placed back on her home schedule of insulin and she received Lantus 65 units twice a day and she was worked back up to NovoLog 25 units before each meals, and with this, her blood sugars were acceptable. This will be further refined at home. Her lungs remained clear throughout her hospitalization. Her strength continued to improve. She did very well with physical therapy and was walking up to 170 feet several times a day using her rolling walker and standby assistance. She was transferring with just standby assistance. Her condition improved such that it felt like that she could be managed at home. She lives alone, but her son plans to come and stay with her, and she has a lady who comes in and assists her with house cleaning and shopping, who will come in more frequently. The patient will be discharged on 07/01/2020. [facility] will see her and arrange for continued in-home PT and OT. DIET: No added salt, diabetic diet. ACTIVITIES: Ambulate with the use of a walker. Glucometer checks before meals. DISCHARGE MEDICATIONS: 1. Tylenol 325 mg two every 4 hours as needed. 2. Januvia 100 mg daily. 3. Aspirin 81 mg daily. 4. Amlodipine 5 mg daily. 5. Fish oil 1000 mg daily. 6. Flonase 2 sprays in each nostril daily. 7. Furosemide 20 mg daily. 8. Hydrochlorothiazide 12.5 mg daily. 9. Lantus 65 units b.i.d. 10. NovoLog 25 units before meals. 11. Levothyroxine 25 mcg daily. 12. Losartan 100 mg daily. 13. Melatonin 6 mg at bedtime. 14. Metoprolol tartrate 25 mg b.i.d. 15. Pravastatin 20 mg daily. FOLLOWUP: [facility] will see the patient and arrange in-home PT and OT. The patient will be seen by myself in the office or by telemedicine visit in 2 weeks. Prior to that visit, she will need a CBC, CMP, lipid panel. Her last hemoglobin A1c was 10.6 on 06/21. CODE STATUS: Full code. Job ID: [id number]
== END 2020-07-01 12:35 | disposition home or self-care (01) | DRG 948 ==
LOC: MADMS 16:16
PROVIDERS: ADMIT Family Medicine; ATTEND Family Medicine
DX: R53.1 Weakness (principal); N39.0 Urinary tract infection, site not specified; E11.22 Type 2 diabetes mellitus with diabetic chronic kidney disease; E03.9 Hypothyroidism, unspecified; I12.9 Hypertensive chronic kidney disease with stage 1 through stage 4 chronic kidney disease, or unspecified chronic kidney disease; E11.42 Type 2 diabetes mellitus with diabetic polyneuropathy; Z90.49 Acquired absence of other specified parts of digestive tract; Z90.710 Acquired absence of both cervix and uterus; Z79.82 Long term (current) use of aspirin; Z79.899 Other long term (current) drug therapy; Z79.890 Hormone replacement therapy; Z79.4 Long term (current) use of insulin; R53.81 Other malaise; B96.20 Unspecified Escherichia coli [E. coli] as the cause of diseases classified elsewhere; R32 Unspecified urinary incontinence; N18.9 Chronic kidney disease, unspecified
CPT/HCPCS: 36415; 36416; 80053; 83036; 85025; 90471; 90732; G0009; J1650; J1815

== ENCOUNTER 2021-01-11 11:20 | Emergency (ER) | payer MEDICARE ==
[2021-01-11] MEDS ORDERED: Ketorolac Tromethamine 30 MG/ML VIAL ONE (12:19)
== END 2021-01-11 12:52 | disposition home or self-care (01) ==
LOC: MADERS 11:20
DX: M25.551 Pain in right hip (principal); M25.561 Pain in right knee; I10 Essential (primary) hypertension; E11.9 Type 2 diabetes mellitus without complications
CPT/HCPCS: 96372; 99283; J1885

== ENCOUNTER 2022-03-14 12:07 | Emergency (ER) | payer MEDICARE ==
[2022-03-14] MEDS ORDERED: Nitroglycerin 0.4 MG TAB 1 EACH SL PRN (12:58)
[2022-03-14] MEDS ORDERED: Aspirin Chewable 81 MG TAB ONE ×2 (12:58)
[2022-03-14] MEDS ORDERED: Nitroglycerin 0.4 MG TAB 1 EACH ONE (12:58)
[2022-03-14 12:59] LABS: #Basophils 0.2 thou/uL (0.0-0.2); #Eosinphils 0.3 thou/uL (0.0-0.7); #Lymphocytes 3.4 thou/uL (1.20-3.40); #Monocytes 1.1 thou/uL (0.11-0.59); #Neutrophils 7.2 thou/uL (1.40-6.50); %Basophils 1.4 % (0.0-1.0); %Eosinophils 2.4 % (0.0-10.0); %Lymphocytes 27.9 % (21.0-51.0); %Monocytes 8.7 % (0.0-10.0); %Neutrophils 59.6 % (42.0-75.0); Hemoglobin 13.8 g/dL (12.0-16.0); Mean Corpuscular HGB CONC 32.3 g/dL (32.0-36.0); Mean Corpuscular Hemoglobin 28.4 pg (27.0-31.0); Mean Platelet Volume 10.2 fL (7.4-10.4); Platelet Count 193 thou/uL (130-400); RBC Distribution Width 12.4 % (11.5-14.5); Red Blood Cell (RBC) Count 4.86 mill/uL (4.20-5.40); White Blood Cell (WBC) Count 12.1 thou/uL (4.8-10.8)
[2022-03-14] MEDS ORDERED: Aspirin 325 MG TAB PO SCH (13:00)
[2022-03-14 13:19] LABS: ALT (SGPT) 26 U/L (8-55); AST (SGOT) 41 U/L (5-34); Albumin 3.2 g/dL (3.4-4.8); Alkaline Phosphatase 57 U/L (40-110); Anion Gap 15 mmol/L (10-20); BUN (Urea Nitrogen) 26 mg/dL (9.8-20.1); Bilirubin, Total 0.4 mg/dL (0.2-1.2); Calc. Creatinine Clearance 0 mL/min (70-130); Carbon Dioxide 24 mmol/L (23-31); Chloride 105 mmol/L (98-107); Estimated GFR 42; Glucose 247 mg/dL (83-110); Lipase 37 U/L (8-78); Potassium 3.9 mmol/L (3.5-5.1); Protein, Total 6.2 g/dL (5.8-8.1); Sodium 140 mmol/L (136-145)
[2022-03-14 14:26] LABS: CKMB 17.6 ng/mL (0-6.6)
[2022-03-14] MEDS ORDERED: Enoxaparin Sodium 100 MG/ML SYRINGE ONE (14:30)
[2022-03-14] MEDS ORDERED: Nitroglycerin 2% Ointment 1 INCH/1 GM Packet ONE (14:30)
== END 2022-03-14 15:10 | disposition short-term general hospital (02) ==
LOC: MADERS 12:07
DX: I21.4 Non-ST elevation (NSTEMI) myocardial infarction (principal); I10 Essential (primary) hypertension; E11.9 Type 2 diabetes mellitus without complications; E66.9 Obesity, unspecified; Z68.45 Body mass index [BMI] 70 or greater, adult; Z79.4 Long term (current) use of insulin; Z85.038 Personal history of other malignant neoplasm of large intestine; Z79.899 Other long term (current) drug therapy
CPT/HCPCS: 71045; 80053; 82553; 83690; 84484; 85025; 93005; 94760; 96372; J1650

== ENCOUNTER 2022-08-11 08:47 | Emergency (ER) | payer MEDICARE ==
[2022-08-11] MEDS ORDERED: Morphine 4 MG/ML VIAL ONE (09:08)
[2022-08-11] MEDS ORDERED: Boostrix 0.5 ML (Tdap) VIAL (>/=7 yrs of age) ONE (09:09)
[2022-08-11 10:15] LABS: #Basophils 0.1 thou/uL (0.0-0.2); #Lymphocytes 2.3 thou/uL (1.20-3.40); #Monocytes 1.4 thou/uL (0.11-0.59); %Basophils 0.5 % (0.0-1.0); %Eosinophils 0.2 % (0.0-10.0); %Lymphocytes 14.3 % (21.0-51.0); %Monocytes 8.9 % (0.0-10.0); %Neutrophils 76.2 % (42.0-75.0); Hemoglobin 14.8 g/dL (12.0-16.0); Mean Corpuscular HGB CONC 32.7 g/dL (32.0-36.0); Mean Corpuscular Hemoglobin 28.8 pg (27.0-31.0); Mean Corpuscular Volume 88.2 fl (78.0-98.0); Mean Platelet Volume 7.1 fL (7.4-10.4); Platelet Count 386 10x3/uL (130-400); RBC Distribution Width 13.1 % (11.5-14.5); Red Blood Cell (RBC) Count 5.14 mill/uL (4.20-5.40); White Blood Cell (WBC) Count 15.8 10x3/uL (4.8-10.8)
[2022-08-11] MEDS ORDERED: Lidocaine 1% (PF) 30 ML VIAL ONE (10:16)
[2022-08-11 10:23] LABS: INR-International Normal Ratio 1.1; Prothrombin Time 14.1 sec (12.0-14.7)
[2022-08-11 10:24] LABS: PTT 30.3 sec (22.9-36.1)
[2022-08-11 10:52] LABS: ALT (SGPT) 57 U/L (8-55); AST (SGOT) 148 U/L (5-34); Albumin 3.6 g/dL (3.4-4.8); Alkaline Phosphatase 106 U/L (40-110); Anion Gap 21 mmol/L (10-20); BUN (Urea Nitrogen) 32 mg/dL (9.8-20.1); Bilirubin, Total 0.7 mg/dL (0.2-1.2); CK (CPK) 386 U/L (29-168); Calc. Creatinine Clearance 0 mL/min (70-130); Calcium 10.1 mg/dL (7.8-10.44); Carbon Dioxide 24 mmol/L (23-31); Chloride 100 mmol/L (98-107); Estimated GFR 28; Globulin 4.4 g/dL (2.4-3.5); Glucose 181 mg/dL (83-110); Lipase 8 U/L (8-78); Magnesium 2.6 mg/dL (1.6-2.6); Potassium 4.3 mmol/L (3.5-5.1); Sodium 141 mmol/L (136-145)
[2022-08-11] MEDS ORDERED: Bacitracin 1 PK ONE (11:13)
[2022-08-11 11:18] LABS: Bilirubin Negative (Negative); Blood, Urine Large (Negative); Clarity Cloudy (Clear); Glucose, Urine (Dipstick) 500 mg/dL (Negative); Ketone, Urine 15 mg/dL (Negative); Leukocyte Large (Negative); Nitrite Negative (Negative); Protein, Urine (Dipstick) 100 mg/dL (Neg-Trace); Urobilinogen 0.2 mg/dL (Less than 2)
[2022-08-11 11:48] LABS: Bacteria/HPF 4+ HPF (None Seen); RBC/HPF Greater than 50 HPF (0-3); Squamous Epithelial None Seen HPF (0-3); WBC/HPF Greater Than 50 HPF (0-3); Yeast-Hyphae 1+ HPF (None Seen)
[2022-08-11] MEDS ORDERED: cefTRIAXone\\ROCEPHIN 1 GM VIAL ONE (12:26)
[2022-08-11] MEDS ORDERED: Sodium Chloride 0.9% 100 ML ONE (12:26)
== END 2022-08-11 13:40 | disposition home or self-care (01) ==
LOC: MADERS 08:47
DX: S02.31XA Fracture of orbital floor, right side, initial encounter for closed fracture (principal); S01.81XA Laceration without foreign body of other part of head, initial encounter; S70.01XA Contusion of right hip, initial encounter; N39.0 Urinary tract infection, site not specified; E11.9 Type 2 diabetes mellitus without complications; Z79.4 Long term (current) use of insulin; I10 Essential (primary) hypertension; Z79.899 Other long term (current) drug therapy; Z79.82 Long term (current) use of aspirin; W19.XXXA Unspecified fall, initial encounter
CPT/HCPCS: 12013; 51701; 70450; 70486; 72125; 80053; 81003; 81015; 82550; 83605; 83690; 83735; 85025; 85610; 85730; 90471; 90715; 93005; 96365; 96375; J0696; J2001; J2270

== ENCOUNTER 2022-08-14 12:48 | Emergency (ER) | payer MEDICARE ==
[2022-08-14] MEDS ORDERED: Sodium Chloride 0.9% 500 ML ONE (13:18)
[2022-08-14 13:53] LABS: Hemoglobin 12.3 g/dL (12.0-16.0); Mean Corpuscular Hemoglobin 28.8 pg (27.0-31.0); Mean Corpuscular Volume 87.4 fl (78.0-98.0); Mean Platelet Volume 7.2 fL (7.4-10.4); Platelet Count 386 10x3/uL (130-400); RBC Distribution Width 12.6 % (11.5-14.5); Red Blood Cell (RBC) Count 4.28 mill/uL (4.20-5.40); White Blood Cell (WBC) Count 22.8 10x3/uL (4.8-10.8)
[2022-08-14 13:56] LABS: ALT (SGPT) 44 U/L (8-55); AST (SGOT) 64 U/L (5-34); Albumin 2.9 g/dL (3.4-4.8); Alkaline Phosphatase 102 U/L (40-110); Anion Gap 17 mmol/L (10-20); BUN (Urea Nitrogen) 59 mg/dL (9.8-20.1); Bilirubin, Total 0.5 mg/dL (0.2-1.2); Calc. Creatinine Clearance 0 mL/min (70-130); Calcium 9.2 mg/dL (7.8-10.44); Carbon Dioxide 26 mmol/L (23-31); Chloride 97 mmol/L (98-107); Estimated GFR 20; Globulin 4.1 g/dL (2.4-3.5); Glucose 141 mg/dL (83-110); Potassium 4.3 mmol/L (3.5-5.1); Sodium 136 mmol/L (136-145)
[2022-08-14] MEDS ORDERED: Sodium Chloride 0.9% 250 ML 250 ML ONE (14:03)
[2022-08-14] MEDS ORDERED: cefTRIAXone\\ROCEPHIN 2 GM VIAL ONE (14:03)
[2022-08-14] MEDS ORDERED: Sodium Chloride 0.9% 100 ML ONE (14:03)
[2022-08-14] MEDS ORDERED: Azithromycin 500 MG VIAL ONE (14:03)
[2022-08-14 14:14] LABS: Anisocytosis SLIGHT = 6-15 cells (100X) (0-5/hpf); Band 4 % (5-11); Lymphocytes 12 % (21-51); MDiff Complete? YES; Manual Diff?? YES; Monocytes 6 % (0-10); Neutrophil 78 % (42-75)
[2022-08-14 14:15] LABS: Platelet Morphology Comment Appears Adequate
[2022-08-14 14:20] LABS: CKMB 15.3 ng/mL (0-6.6)
[2022-08-14 15:11] LABS: SARS-CoV-2 NAA Rapid Test DETECTED (NotDetected)
[2022-08-14] MEDS ORDERED: Dexamethasone 10 MG/ML VIAL ONE (15:19)
== END 2022-08-14 15:56 | disposition short-term general hospital (02) ==
LOC: MADERS 12:48
DX: U07.1 COVID-19 (principal); J12.82 Pneumonia due to coronavirus disease 2019; I21.4 Non-ST elevation (NSTEMI) myocardial infarction; E11.9 Type 2 diabetes mellitus without complications; Z79.4 Long term (current) use of insulin; I10 Essential (primary) hypertension; E66.9 Obesity, unspecified; Z79.899 Other long term (current) drug therapy; Z79.84 Long term (current) use of oral hypoglycemic drugs; Z79.82 Long term (current) use of aspirin
CPT/HCPCS: 36415; 71045; 80053; 82553; 83605; 83880; 84484; 85025; 85379; 87040; 93005; 96365; 96372; 96375; J0456; J0696; J1100; J1650; J3490; J7030; J7050

== ENCOUNTER 2022-08-22 20:29 | Inpatient (IN) | payer MEDICARE ==
[2022-08-22] MEDS ORDERED: Nitroglycerin 0.4 MG TAB (25 Tab Bottle) SL PRN (21:20)
[2022-08-22] MEDS ORDERED: Dextrose 50% Abboject 50 ML SYRINGE SLOW IVP PRN (22:17)
[2022-08-22] MEDS ORDERED: Lantus 1000 UNITS/10 ML VIAL SC SCH (23:30)
[2022-08-22] MEDS ORDERED: Metoprolol Tartrate 50 MG TAB PO SCH (23:30)
[2022-08-22] MEDS ORDERED: NIFEdipine XL 30 MG TAB PO SCH (23:30)
[2022-08-22] MEDS: Acetaminophen 325 MG TAB PO PRN (23:33)
[2022-08-23] MEDS: Levothyroxine Sodium 25 MCG TAB PO SCH (06:26)
[2022-08-23] MEDS ORDERED: Spironolactone 25 MG TAB PO SCH (08:00)
[2022-08-23] MEDS ORDERED: Lantus 1000 UNITS/10 ML VIAL SC SCH (09:00)
[2022-08-23] MEDS: Cefuroxime 250 MG TAB PO SCH ×2 (10:08→21:09)
[2022-08-23] MEDS: Aspirin 81 mg Enteric Coated Tablet PO SCH (10:08)
[2022-08-23] MEDS: Clopidogrel Bisulfate 75 MG TAB PO SCH (10:09)
[2022-08-23] MEDS: Empagliflozin 10 MG TAB PO SCH (10:09)
[2022-08-23] MEDS: Cholecalciferol (Vitamin D3) 5,000 UNITS CAPSULE PO SCH ×2 (10:09→21:09)
[2022-08-23] MEDS: Metoprolol Tartrate 50 MG TAB PO SCH ×3 (10:10→21:13)
[2022-08-23] MEDS: Furosemide 20 MG TAB PO SCH (10:10)
[2022-08-23] MEDS: Fish Oil 1,000 MG CAP PO SCH (10:10)
[2022-08-23] MEDS: Fluconazole 100 MG TAB PO SCH (10:10)
[2022-08-23] MEDS: Magnesium Oxide 400 MG TAB PO SCH ×2 (10:10→21:09)
[2022-08-23] MEDS: Fluticasone Propionate Nasal Spray 16 gm Bottle NASAL SCH (10:14)
[2022-08-23] MEDS: HumaLOG 300 UNITS/3 ML VIAL SC PRN ×3 (10:14→21:39)
[2022-08-23] MEDS: NIFEdipine XL 30 MG TAB PO SCH ×2 (10:14→21:10)
[2022-08-23] MEDS: Acetaminophen 325 MG TAB PO PRN ×2 (12:48→21:10)
[2022-08-23] MEDS ORDERED: Lantiseptic Ointment 130 GM JAR TOP PRN (13:20)
[2022-08-23] MEDS: Atorvastatin Calcium 40 MG TAB PO SCH (21:09)
[2022-08-23] MEDS: Melatonin 3 MG TAB PO SCH (21:09)
[2022-08-23] MEDS: Clotrimazole 1% Cream 15 GM TUBE TOP SCH (21:10)
[2022-08-23] MEDS: Lantiseptic Ointment 130 GM JAR TOP SCH (21:11)
[2022-08-23] MEDS: Lantus 1000 UNITS/10 ML VIAL SC SCH (21:11)
[2022-08-24] MEDS: Levothyroxine Sodium 25 MCG TAB PO SCH (05:52)
[2022-08-24] MEDS: Aspirin 81 mg Enteric Coated Tablet PO SCH (09:25)
[2022-08-24] MEDS: Furosemide 20 MG TAB PO SCH (09:26)
[2022-08-24] MEDS: Cefuroxime 250 MG TAB PO SCH ×2 (09:26→21:05)
[2022-08-24] MEDS: NIFEdipine XL 30 MG TAB PO SCH ×2 (09:26→21:07)
[2022-08-24] MEDS: Clopidogrel Bisulfate 75 MG TAB PO SCH (09:26)
[2022-08-24] MEDS: Fish Oil 1,000 MG CAP PO SCH (09:26)
[2022-08-24] MEDS: Magnesium Oxide 400 MG TAB PO SCH ×2 (09:26→21:07)
[2022-08-24] MEDS: Empagliflozin 10 MG TAB PO SCH (09:26)
[2022-08-24] MEDS: Cholecalciferol (Vitamin D3) 5,000 UNITS CAPSULE PO SCH ×2 (09:26→21:05)
[2022-08-24] MEDS: Fluconazole 100 MG TAB PO SCH (09:26)
[2022-08-24] MEDS: Metoprolol Tartrate 50 MG TAB PO SCH ×3 (09:27→21:07)
[2022-08-24] MEDS: Fluticasone Propionate Nasal Spray 16 gm Bottle NASAL SCH (09:28)
[2022-08-24] MEDS: Clotrimazole 1% Cream 15 GM TUBE TOP SCH ×2 (09:29→21:24)
[2022-08-24] MEDS: Lantiseptic Ointment 130 GM JAR TOP SCH ×2 (09:30→21:17)
[2022-08-24] MEDS: HumaLOG 300 UNITS/3 ML VIAL SC PRN ×3 (12:13→21:13)
[2022-08-24] MEDS: Acetaminophen 325 MG TAB PO PRN (17:40)
[2022-08-24] MEDS: Atorvastatin Calcium 40 MG TAB PO SCH (21:05)
[2022-08-24] MEDS: Lantus 1000 UNITS/10 ML VIAL SC SCH (21:05)
[2022-08-24] MEDS: Melatonin 3 MG TAB PO SCH (21:07)
[2022-08-25] MEDS: Levothyroxine Sodium 25 MCG TAB PO SCH (05:21)
[2022-08-25] MEDS: Acetaminophen 325 MG TAB PO PRN (05:21)
[2022-08-25 05:56] LABS: #Basophils 0.2 thou/uL (0.0-0.2); #Eosinphils 0.8 thou/uL (0.0-0.7); #Lymphocytes 3.6 thou/uL (1.20-3.40); #Monocytes 1.4 thou/uL (0.11-0.59); #Neutrophils 10.2 thou/uL (1.40-6.50); %Eosinophils 4.8 % (0.0-10.0); %Lymphocytes 22.2 % (21.0-51.0); %Monocytes 8.5 % (0.0-10.0); %Neutrophils 63.6 % (42.0-75.0); Hemoglobin 10.5 g/dL (12.0-16.0); Mean Corpuscular HGB CONC 33.6 g/dL (32.0-36.0); Mean Corpuscular Hemoglobin 29.8 pg (27.0-31.0); Mean Corpuscular Volume 88.6 fl (78.0-98.0); Mean Platelet Volume 7.3 fL (7.4-10.4); Platelet Count 328 10x3/uL (130-400); RBC Distribution Width 14.3 % (11.5-14.5); Red Blood Cell (RBC) Count 3.52 mill/uL (4.20-5.40); White Blood Cell (WBC) Count 16.1 10x3/uL (4.8-10.8)
[2022-08-25] MEDS: Ondansetron ODT 4 MG TAB PO PRN (06:08)
[2022-08-25 06:24] LABS: Anion Gap 16 mmol/L (10-20); BUN (Urea Nitrogen) 27 mg/dL (9.8-20.1); Calc. Creatinine Clearance 46 mL/min (70-130); Calcium 8.8 mg/dL (7.8-10.44); Carbon Dioxide 20 mmol/L (23-31); Chloride 106 mmol/L (98-107); Estimated GFR 39; Glucose 183 mg/dL (83-110); Potassium 4.2 mmol/L (3.5-5.1); Sodium 138 mmol/L (136-145)
[2022-08-25] MEDS: Aspirin 81 mg Enteric Coated Tablet PO SCH (09:54)
[2022-08-25] MEDS: Metoprolol Tartrate 50 MG TAB PO SCH ×2 (09:55→21:25)
[2022-08-25] MEDS: Magnesium Oxide 400 MG TAB PO SCH ×2 (09:55→21:25)
[2022-08-25] MEDS: Empagliflozin 10 MG TAB PO SCH (09:55)
[2022-08-25] MEDS: Fluconazole 100 MG TAB PO SCH (09:55)
[2022-08-25] MEDS: Cefuroxime 250 MG TAB PO SCH ×2 (09:55→21:25)
[2022-08-25] MEDS: Fish Oil 1,000 MG CAP PO SCH (09:55)
[2022-08-25] MEDS: Furosemide 20 MG TAB PO SCH (09:55)
[2022-08-25] MEDS: Clopidogrel Bisulfate 75 MG TAB PO SCH (09:55)
[2022-08-25] MEDS: Cholecalciferol (Vitamin D3) 5,000 UNITS CAPSULE PO SCH ×2 (09:55→21:25)
[2022-08-25] MEDS: NIFEdipine XL 30 MG TAB PO SCH ×2 (09:55→21:25)
[2022-08-25] MEDS: Fluticasone Propionate Nasal Spray 16 gm Bottle NASAL SCH (09:59)
[2022-08-25] MEDS: Lantiseptic Ointment 130 GM JAR TOP SCH ×2 (10:00→22:55)
[2022-08-25] MEDS: Clotrimazole 1% Cream 15 GM TUBE TOP SCH ×2 (10:01→21:25)
[2022-08-25] MEDS: HumaLOG 300 UNITS/3 ML VIAL SC PRN ×4 (10:02→21:24)
[2022-08-25] MEDS: Lantus 1000 UNITS/10 ML VIAL SC SCH (21:23)
[2022-08-25] MEDS: Melatonin 3 MG TAB PO SCH (21:25)
[2022-08-25] MEDS: Atorvastatin Calcium 40 MG TAB PO SCH (21:25)
[2022-08-26] MEDS: Acetaminophen 325 MG TAB PO PRN ×2 (01:15→20:49)
[2022-08-26] MEDS: Levothyroxine Sodium 25 MCG TAB PO SCH (05:43)
[2022-08-26] MEDS: Fluticasone Propionate Nasal Spray 16 gm Bottle NASAL SCH (08:37)
[2022-08-26] MEDS: Fluconazole 100 MG TAB PO SCH (08:38)
[2022-08-26] MEDS: Magnesium Oxide 400 MG TAB PO SCH ×2 (08:38→20:48)
[2022-08-26] MEDS: NIFEdipine XL 30 MG TAB PO SCH ×2 (08:38→20:49)
[2022-08-26] MEDS: Metoprolol Tartrate 50 MG TAB PO SCH ×2 (08:38→20:48)
[2022-08-26] MEDS: Empagliflozin 10 MG TAB PO SCH (08:38)
[2022-08-26] MEDS: Fish Oil 1,000 MG CAP PO SCH (08:38)
[2022-08-26] MEDS: Aspirin 81 mg Enteric Coated Tablet PO SCH (08:38)
[2022-08-26] MEDS: Cholecalciferol (Vitamin D3) 5,000 UNITS CAPSULE PO SCH ×2 (08:39→20:48)
[2022-08-26] MEDS: Furosemide 20 MG TAB PO SCH (08:39)
[2022-08-26] MEDS: Clopidogrel Bisulfate 75 MG TAB PO SCH (08:39)
[2022-08-26] MEDS: Clotrimazole 1% Cream 15 GM TUBE TOP SCH ×2 (08:39→21:00)
[2022-08-26] MEDS: Lantiseptic Ointment 130 GM JAR TOP SCH ×2 (08:40→21:00)
[2022-08-26] MEDS: HumaLOG 300 UNITS/3 ML VIAL SC PRN ×3 (11:54→20:56)
[2022-08-26] MEDS: Atorvastatin Calcium 40 MG TAB PO SCH (20:49)
[2022-08-26] MEDS: Melatonin 3 MG TAB PO SCH (20:49)
[2022-08-26] MEDS: Lantus 1000 UNITS/10 ML VIAL SC SCH (20:50)
[2022-08-27] MEDS: Acetaminophen 325 MG TAB PO PRN ×3 (04:35→20:51)
[2022-08-27] MEDS: Levothyroxine Sodium 25 MCG TAB PO SCH (04:35)
[2022-08-27] MEDS: Cholecalciferol (Vitamin D3) 5,000 UNITS CAPSULE PO SCH ×2 (08:22→20:50)
[2022-08-27] MEDS: Magnesium Oxide 400 MG TAB PO SCH ×2 (08:22→20:50)
[2022-08-27] MEDS: Fluticasone Propionate Nasal Spray 16 gm Bottle NASAL SCH (08:22)
[2022-08-27] MEDS: Aspirin 81 mg Enteric Coated Tablet PO SCH (08:23)
[2022-08-27] MEDS: NIFEdipine XL 30 MG TAB PO SCH ×2 (08:23→20:50)
[2022-08-27] MEDS: Metoprolol Tartrate 50 MG TAB PO SCH ×2 (08:23→20:50)
[2022-08-27] MEDS: Furosemide 20 MG TAB PO SCH (08:23)
[2022-08-27] MEDS: Fish Oil 1,000 MG CAP PO SCH (08:23)
[2022-08-27] MEDS: Fluconazole 100 MG TAB PO SCH (08:23)
[2022-08-27] MEDS: Empagliflozin 10 MG TAB PO SCH (08:23)
[2022-08-27] MEDS: Clopidogrel Bisulfate 75 MG TAB PO SCH (08:23)
[2022-08-27] MEDS: Clotrimazole 1% Cream 15 GM TUBE TOP SCH ×2 (08:25→21:00)
[2022-08-27] MEDS: Lantiseptic Ointment 130 GM JAR TOP SCH ×2 (08:25→20:59)
[2022-08-27] MEDS: HumaLOG 300 UNITS/3 ML VIAL SC PRN ×2 (11:56→17:08)
[2022-08-27] MEDS: Melatonin 3 MG TAB PO SCH (20:50)
[2022-08-27] MEDS: Atorvastatin Calcium 40 MG TAB PO SCH (20:50)
[2022-08-27] MEDS: Lantus 1000 UNITS/10 ML VIAL SC SCH (20:58)
[2022-08-28] MEDS: Acetaminophen 325 MG TAB PO PRN ×3 (02:28→21:03)
[2022-08-28] MEDS: Levothyroxine Sodium 25 MCG TAB PO SCH (05:20)
[2022-08-28] MEDS: Aspirin 81 mg Enteric Coated Tablet PO SCH (07:41)
[2022-08-28 07:43] LABS: #Basophils 0.1 thou/uL (0.0-0.2); #Eosinphils 0.3 thou/uL (0.0-0.7); #Lymphocytes 1.9 thou/uL (1.20-3.40); #Monocytes 0.8 thou/uL (0.11-0.59); #Neutrophils 8.2 thou/uL (1.40-6.50); %Basophils 1.3 % (0.0-1.0); %Eosinophils 2.9 % (0.0-10.0); %Lymphocytes 16.3 % (21.0-51.0); %Monocytes 7.2 % (0.0-10.0); %Neutrophils 72.3 % (42.0-75.0); Mean Corpuscular HGB CONC 33.8 g/dL (32.0-36.0); Mean Corpuscular Hemoglobin 29.9 pg (27.0-31.0); Mean Corpuscular Volume 88.4 fl (78.0-98.0); Mean Platelet Volume 6.7 fL (7.4-10.4); Platelet Count 404 10x3/uL (130-400); RBC Distribution Width 14.7 % (11.5-14.5); Red Blood Cell (RBC) Count 3.35 mill/uL (4.20-5.40); White Blood Cell (WBC) Count 11.4 10x3/uL (4.8-10.8)
[2022-08-28 07:55] LABS: INR-International Normal Ratio 1.1; Prothrombin Time 14.2 sec (12.0-14.7)
[2022-08-28 07:57] LABS: PTT 27.2 sec (22.9-36.1)
[2022-08-28 08:01] LABS: Anion Gap 15 mmol/L (10-20); BUN (Urea Nitrogen) 26 mg/dL (9.8-20.1); CK (CPK) 34 U/L (29-168); Calc. Creatinine Clearance 47 mL/min (70-130); Calcium 8.8 mg/dL (7.8-10.44); Carbon Dioxide 20 mmol/L (23-31); Chloride 106 mmol/L (98-107); Estimated GFR 39; Glucose 177 mg/dL (83-110); Sodium 137 mmol/L (136-145)
[2022-08-28 08:05] LABS: CKMB 0.9 ng/mL (0-6.6)
[2022-08-28] MEDS: Cholecalciferol (Vitamin D3) 5,000 UNITS CAPSULE PO SCH ×2 (09:15→21:02)
[2022-08-28] MEDS: Fluticasone Propionate Nasal Spray 16 gm Bottle NASAL SCH (09:15)
[2022-08-28] MEDS: Metoprolol Tartrate 50 MG TAB PO SCH ×2 (09:15→21:02)
[2022-08-28] MEDS: NIFEdipine XL 30 MG TAB PO SCH ×2 (09:15→21:02)
[2022-08-28] MEDS: Fish Oil 1,000 MG CAP PO SCH (09:15)
[2022-08-28] MEDS: busPIRone HCl 5 MG TAB PO SCH ×2 (09:16→21:02)
[2022-08-28] MEDS: Furosemide 20 MG TAB PO SCH (09:16)
[2022-08-28] MEDS: Empagliflozin 10 MG TAB PO SCH (09:16)
[2022-08-28] MEDS: Magnesium Oxide 400 MG TAB PO SCH ×2 (09:16→21:02)
[2022-08-28] MEDS: Fluconazole 100 MG TAB PO SCH (09:16)
[2022-08-28] MEDS: Lantiseptic Ointment 130 GM JAR TOP SCH ×2 (09:16→21:43)
[2022-08-28] MEDS: Clotrimazole 1% Cream 15 GM TUBE TOP SCH ×2 (09:18→21:43)
[2022-08-28] MEDS: HumaLOG 300 UNITS/3 ML VIAL SC PRN ×2 (12:11→21:00)
[2022-08-28] MEDS ORDERED: Furosemide 40 MG/4 ML VIAL SLOW IVP SCH (14:15)
[2022-08-28] MEDS: Lantus 1000 UNITS/10 ML VIAL SC SCH (20:59)
[2022-08-28] MEDS: Atorvastatin Calcium 40 MG TAB PO SCH (21:02)
[2022-08-28] MEDS: Melatonin 3 MG TAB PO SCH (21:02)
[2022-08-29] MEDS: Levothyroxine Sodium 25 MCG TAB PO SCH (05:46)
[2022-08-29] MEDS: Acetaminophen 325 MG TAB PO PRN (08:36)
[2022-08-29] MEDS: Cholecalciferol (Vitamin D3) 5,000 UNITS CAPSULE PO SCH ×2 (08:36→22:12)
[2022-08-29] MEDS: Fish Oil 1,000 MG CAP PO SCH (08:36)
[2022-08-29] MEDS: Empagliflozin 10 MG TAB PO SCH (08:36)
[2022-08-29] MEDS: busPIRone HCl 5 MG TAB PO SCH ×2 (08:36→22:12)
[2022-08-29] MEDS: Metoprolol Tartrate 50 MG TAB PO SCH ×2 (08:36→22:15)
[2022-08-29] MEDS: Magnesium Oxide 400 MG TAB PO SCH ×2 (08:37→22:15)
[2022-08-29] MEDS: NIFEdipine XL 30 MG TAB PO SCH ×2 (08:37→22:15)
[2022-08-29] MEDS: Furosemide 40 MG TAB PO SCH (08:37)
[2022-08-29] MEDS: Aspirin 81 mg Enteric Coated Tablet PO SCH (08:37)
[2022-08-29] MEDS: Fluconazole 100 MG TAB PO SCH (08:38)
[2022-08-29] MEDS: Fluticasone Propionate Nasal Spray 16 gm Bottle NASAL SCH (08:38)
[2022-08-29] MEDS: Clotrimazole 1% Cream 15 GM TUBE TOP SCH ×2 (08:38→22:16)
[2022-08-29] MEDS: Lantiseptic Ointment 130 GM JAR TOP SCH ×2 (08:40→22:13)
[2022-08-29] MEDS: HumaLOG 300 UNITS/3 ML VIAL SC PRN ×3 (08:40→17:26)
[2022-08-29] MEDS: Atorvastatin Calcium 40 MG TAB PO SCH (22:11)
[2022-08-29] MEDS: Melatonin 3 MG TAB PO SCH (22:14)
[2022-08-29] MEDS: Lantus 1000 UNITS/10 ML VIAL SC SCH (22:44)
[2022-08-30] MEDS: Levothyroxine Sodium 25 MCG TAB PO SCH (06:23)
[2022-08-30] MEDS: Metoprolol Tartrate 50 MG TAB PO SCH ×2 (09:18→21:07)
[2022-08-30] MEDS: Magnesium Oxide 400 MG TAB PO SCH ×2 (09:18→21:06)
[2022-08-30] MEDS: NIFEdipine XL 30 MG TAB PO SCH ×2 (09:18→21:10)
[2022-08-30] MEDS: Empagliflozin 10 MG TAB PO SCH (09:19)
[2022-08-30] MEDS: Fish Oil 1,000 MG CAP PO SCH ×2 (09:19→09:20)
[2022-08-30] MEDS: Furosemide 40 MG TAB PO SCH (09:20)
[2022-08-30] MEDS: busPIRone HCl 5 MG TAB PO SCH ×2 (09:20→21:07)
[2022-08-30] MEDS: Aspirin 81 mg Enteric Coated Tablet PO SCH (09:20)
[2022-08-30] MEDS: Clotrimazole 1% Cream 15 GM TUBE TOP SCH ×2 (09:31→21:12)
[2022-08-30] MEDS: Fluticasone Propionate Nasal Spray 16 gm Bottle NASAL SCH (09:31)
[2022-08-30] MEDS: Lantiseptic Ointment 130 GM JAR TOP SCH ×2 (09:31→21:07)
[2022-08-30] MEDS: Cholecalciferol (Vitamin D3) 5,000 UNITS CAPSULE PO SCH ×2 (09:33→21:06)
[2022-08-30] MEDS: HumaLOG 300 UNITS/3 ML VIAL SC PRN ×2 (11:54→17:21)
[2022-08-30] MEDS: Atorvastatin Calcium 40 MG TAB PO SCH (21:05)
[2022-08-30] MEDS: Melatonin 3 MG TAB PO SCH (21:06)
[2022-08-30] MEDS: Lantus 1000 UNITS/10 ML VIAL SC SCH (21:11)
[2022-08-31] MEDS: Levothyroxine Sodium 25 MCG TAB PO SCH (05:41)
[2022-08-31] MEDS: Acetaminophen 325 MG TAB PO PRN ×2 (05:41→21:24)
[2022-08-31] MEDS: NIFEdipine XL 30 MG TAB PO SCH ×2 (09:28→21:20)
[2022-08-31] MEDS: Furosemide 40 MG TAB PO SCH (09:28)
[2022-08-31] MEDS: Magnesium Oxide 400 MG TAB PO SCH ×2 (09:28→21:21)
[2022-08-31] MEDS: Lantiseptic Ointment 130 GM JAR TOP SCH ×2 (09:29→21:29)
[2022-08-31] MEDS: Fluticasone Propionate Nasal Spray 16 gm Bottle NASAL SCH (09:29)
[2022-08-31] MEDS: Metoprolol Tartrate 50 MG TAB PO SCH ×2 (09:29→21:23)
[2022-08-31] MEDS: Empagliflozin 10 MG TAB PO SCH (09:29)
[2022-08-31] MEDS: busPIRone HCl 5 MG TAB PO SCH ×2 (09:29→21:20)
[2022-08-31] MEDS: Aspirin 81 mg Enteric Coated Tablet PO SCH (09:29)
[2022-08-31] MEDS: Clotrimazole 1% Cream 15 GM TUBE TOP SCH ×2 (09:30→21:30)
[2022-08-31] MEDS: Cholecalciferol (Vitamin D3) 5,000 UNITS CAPSULE PO SCH ×2 (09:30→21:21)
[2022-08-31] MEDS: HumaLOG 300 UNITS/3 ML VIAL SC PRN ×3 (11:50→21:27)
[2022-08-31] MEDS: Atorvastatin Calcium 40 MG TAB PO SCH (21:23)
[2022-08-31] MEDS: Melatonin 3 MG TAB PO SCH (21:24)
[2022-08-31] MEDS: Lantus 1000 UNITS/10 ML VIAL SC SCH (21:26)
[2022-09-01] MEDS: Levothyroxine Sodium 25 MCG TAB PO SCH (05:37)
[2022-09-01] MEDS: Acetaminophen 325 MG TAB PO PRN ×2 (05:37→22:07)
[2022-09-01] MEDS: Fluticasone Propionate Nasal Spray 16 gm Bottle NASAL SCH (08:12)
[2022-09-01] MEDS: Aspirin 81 mg Enteric Coated Tablet PO SCH (08:13)
[2022-09-01] MEDS: Furosemide 40 MG TAB PO SCH (08:13)
[2022-09-01] MEDS: Magnesium Oxide 400 MG TAB PO SCH ×2 (08:13→22:06)
[2022-09-01] MEDS: Metoprolol Tartrate 50 MG TAB PO SCH ×2 (08:13→22:06)
[2022-09-01] MEDS: Fish Oil 1,000 MG CAP PO SCH (08:13)
[2022-09-01] MEDS: NIFEdipine XL 30 MG TAB PO SCH ×2 (08:13→22:04)
[2022-09-01] MEDS: busPIRone HCl 5 MG TAB PO SCH ×2 (08:13→22:06)
[2022-09-01] MEDS: Empagliflozin 10 MG TAB PO SCH (08:13)
[2022-09-01] MEDS: Cholecalciferol (Vitamin D3) 5,000 UNITS CAPSULE PO SCH ×2 (08:15→22:06)
[2022-09-01] MEDS: Lantiseptic Ointment 130 GM JAR TOP SCH ×2 (08:16→22:08)
[2022-09-01] MEDS: Clotrimazole 1% Cream 15 GM TUBE TOP SCH ×2 (08:16→22:07)
[2022-09-01] MEDS: HumaLOG 300 UNITS/3 ML VIAL SC PRN ×3 (08:23→18:27)
[2022-09-01] MEDS: Melatonin 3 MG TAB PO SCH (22:05)
[2022-09-01] MEDS: Atorvastatin Calcium 40 MG TAB PO SCH (22:06)
[2022-09-01] MEDS: Lantus 1000 UNITS/10 ML VIAL SC SCH (22:08)
[2022-09-02] MEDS: Acetaminophen 325 MG TAB PO PRN (06:00)
[2022-09-02] MEDS: Levothyroxine Sodium 25 MCG TAB PO SCH (06:00)
[2022-09-02] MEDS: Fish Oil 1,000 MG CAP PO SCH (08:51)
[2022-09-02] MEDS: Cholecalciferol (Vitamin D3) 5,000 UNITS CAPSULE PO SCH ×2 (08:51→21:27)
[2022-09-02] MEDS: Empagliflozin 10 MG TAB PO SCH (08:51)
[2022-09-02] MEDS: busPIRone HCl 5 MG TAB PO SCH ×2 (08:51→21:27)
[2022-09-02] MEDS: Aspirin 81 mg Enteric Coated Tablet PO SCH (08:51)
[2022-09-02] MEDS: Clotrimazole 1% Cream 15 GM TUBE TOP SCH ×2 (08:51→21:32)
[2022-09-02] MEDS: Magnesium Oxide 400 MG TAB PO SCH ×2 (08:51→21:28)
[2022-09-02] MEDS: NIFEdipine XL 30 MG TAB PO SCH ×2 (08:51→21:27)
[2022-09-02] MEDS: Metoprolol Tartrate 50 MG TAB PO SCH ×2 (08:51→21:27)
[2022-09-02] MEDS: Furosemide 40 MG TAB PO SCH (08:52)
[2022-09-02] MEDS: Lantiseptic Ointment 130 GM JAR TOP SCH ×2 (08:53→21:32)
[2022-09-02] MEDS: Fluticasone Propionate Nasal Spray 16 gm Bottle NASAL SCH (08:53)
[2022-09-02] MEDS: HumaLOG 300 UNITS/3 ML VIAL SC PRN ×3 (12:17→21:37)
[2022-09-02] MEDS: Melatonin 3 MG TAB PO SCH (21:28)
[2022-09-02] MEDS: Atorvastatin Calcium 40 MG TAB PO SCH (21:28)
[2022-09-02] MEDS: Lantus 1000 UNITS/10 ML VIAL SC SCH (21:35)
[2022-09-03] MEDS: Levothyroxine Sodium 25 MCG TAB PO SCH (06:01)
[2022-09-03] MEDS: Acetaminophen 325 MG TAB PO PRN ×2 (06:01→21:45)
[2022-09-03] MEDS: HumaLOG 300 UNITS/3 ML VIAL SC PRN ×3 (08:31→21:20)
[2022-09-03] MEDS: NIFEdipine XL 30 MG TAB PO SCH ×2 (08:32→21:20)
[2022-09-03] MEDS: Furosemide 40 MG TAB PO SCH (08:32)
[2022-09-03] MEDS: Fish Oil 1,000 MG CAP PO SCH (08:32)
[2022-09-03] MEDS: busPIRone HCl 5 MG TAB PO SCH ×2 (08:32→21:20)
[2022-09-03] MEDS: Aspirin 81 mg Enteric Coated Tablet PO SCH (08:32)
[2022-09-03] MEDS: Lantiseptic Ointment 130 GM JAR TOP SCH ×2 (08:33→21:20)
[2022-09-03] MEDS: Fluticasone Propionate Nasal Spray 16 gm Bottle NASAL SCH (08:33)
[2022-09-03] MEDS: Magnesium Oxide 400 MG TAB PO SCH ×2 (08:33→21:20)
[2022-09-03] MEDS: Clotrimazole 1% Cream 15 GM TUBE TOP SCH ×2 (08:34→21:20)
[2022-09-03] MEDS: Cholecalciferol (Vitamin D3) 5,000 UNITS CAPSULE PO SCH ×2 (08:34→21:20)
[2022-09-03] MEDS: Empagliflozin 10 MG TAB PO SCH (08:34)
[2022-09-03] MEDS: Metoprolol Tartrate 50 MG TAB PO SCH ×2 (08:36→21:20)
[2022-09-03] MEDS ORDERED: busPIRone HCl 5 MG TAB ONE (20:17)
[2022-09-03] MEDS ORDERED: Atorvastatin Calcium 40 MG TAB ONE (20:20)
[2022-09-03] MEDS ORDERED: Magnesium Oxide 400 MG TAB ONE (20:21)
[2022-09-03] MEDS ORDERED: Metoprolol Tartrate 50 MG TAB ONE (20:21)
[2022-09-03] MEDS ORDERED: NIFEdipine XL 30 MG TAB ONE (20:22)
[2022-09-03] MEDS ORDERED: Melatonin 3 MG TAB ONE (20:22)
[2022-09-03] MEDS ORDERED: Cholecalciferol (Vitamin D3) 5,000 UNITS CAPSULE PO ONE (20:25)
[2022-09-03] MEDS: Melatonin 3 MG TAB PO SCH (21:20)
[2022-09-03] MEDS: Atorvastatin Calcium 40 MG TAB PO SCH (21:20)
[2022-09-03] MEDS: Lantus 1000 UNITS/10 ML VIAL SC SCH (21:20)
[2022-09-03] MEDS ORDERED: Acetaminophen 325 MG TAB ONE (21:43)
[2022-09-04] MEDS: Levothyroxine Sodium 25 MCG TAB PO SCH (05:53)
[2022-09-04] MEDS: Acetaminophen 325 MG TAB PO PRN (05:56)
[2022-09-04] MEDS: Aspirin 81 mg Enteric Coated Tablet PO SCH (08:17)
[2022-09-04] MEDS: NIFEdipine XL 30 MG TAB PO SCH ×2 (08:17→20:22)
[2022-09-04] MEDS: Cholecalciferol (Vitamin D3) 5,000 UNITS CAPSULE PO SCH ×2 (08:17→20:23)
[2022-09-04] MEDS: busPIRone HCl 5 MG TAB PO SCH ×2 (08:17→20:23)
[2022-09-04] MEDS: Empagliflozin 10 MG TAB PO SCH (08:17)
[2022-09-04] MEDS: Furosemide 40 MG TAB PO SCH (08:17)
[2022-09-04] MEDS: Clotrimazole 1% Cream 15 GM TUBE TOP SCH ×2 (08:18→20:24)
[2022-09-04] MEDS: Fish Oil 1,000 MG CAP PO SCH (08:18)
[2022-09-04] MEDS: Magnesium Oxide 400 MG TAB PO SCH ×2 (08:18→20:23)
[2022-09-04] MEDS: Lantiseptic Ointment 130 GM JAR TOP SCH ×2 (08:18→20:24)
[2022-09-04] MEDS: Fluticasone Propionate Nasal Spray 16 gm Bottle NASAL SCH (08:18)
[2022-09-04] MEDS: Metoprolol Tartrate 50 MG TAB PO SCH ×2 (08:18→20:23)
[2022-09-04] MEDS: HumaLOG 300 UNITS/3 ML VIAL SC PRN (12:25)
[2022-09-04] MEDS: Lantus 1000 UNITS/10 ML VIAL SC SCH (20:21)
[2022-09-04] MEDS: Atorvastatin Calcium 40 MG TAB PO SCH (20:23)
[2022-09-04] MEDS: Melatonin 3 MG TAB PO SCH (20:27)
[2022-09-05 05:08] LABS: Hemoglobin 10.1 g/dL (12.0-16.0); Platelet Count 258 10x3/uL (130-400)
[2022-09-05] MEDS: Levothyroxine Sodium 25 MCG TAB PO SCH (05:41)
[2022-09-05] MEDS: Acetaminophen 325 MG TAB PO PRN (05:44)
[2022-09-05] MEDS: busPIRone HCl 5 MG TAB PO SCH ×2 (08:37→21:21)
[2022-09-05] MEDS: Furosemide 40 MG TAB PO SCH (08:38)
[2022-09-05] MEDS: Aspirin 81 mg Enteric Coated Tablet PO SCH (08:38)
[2022-09-05] MEDS: NIFEdipine XL 30 MG TAB PO SCH ×2 (08:38→21:28)
[2022-09-05] MEDS: Metoprolol Tartrate 50 MG TAB PO SCH ×2 (08:38→21:22)
[2022-09-05] MEDS: Empagliflozin 10 MG TAB PO SCH (08:38)
[2022-09-05] MEDS: Cholecalciferol (Vitamin D3) 5,000 UNITS CAPSULE PO SCH ×2 (08:38→21:22)
[2022-09-05] MEDS: Magnesium Oxide 400 MG TAB PO SCH ×2 (08:38→21:21)
[2022-09-05] MEDS: Fish Oil 1,000 MG CAP PO SCH (08:38)
[2022-09-05] MEDS: Fluticasone Propionate Nasal Spray 16 gm Bottle NASAL SCH (08:39)
[2022-09-05] MEDS: Lantiseptic Ointment 130 GM JAR TOP SCH ×2 (08:49→21:23)
[2022-09-05] MEDS: Clotrimazole 1% Cream 15 GM TUBE TOP SCH ×2 (08:49→21:24)
[2022-09-05] MEDS: HumaLOG 300 UNITS/3 ML VIAL SC PRN ×2 (12:11→17:06)
[2022-09-05] MEDS: Melatonin 3 MG TAB PO SCH (21:21)
[2022-09-05] MEDS: Lantus 1000 UNITS/10 ML VIAL SC SCH (21:22)
[2022-09-05] MEDS: Atorvastatin Calcium 40 MG TAB PO SCH (21:22)
[2022-09-06] MEDS: Levothyroxine Sodium 25 MCG TAB PO SCH (05:10)
[2022-09-06] MEDS: Fish Oil 1,000 MG CAP PO SCH (08:27)
[2022-09-06] MEDS: Metoprolol Tartrate 50 MG TAB PO SCH ×2 (08:27→20:41)
[2022-09-06] MEDS: NIFEdipine XL 30 MG TAB PO SCH ×2 (08:27→20:41)
[2022-09-06] MEDS: Empagliflozin 10 MG TAB PO SCH (08:27)
[2022-09-06] MEDS: Magnesium Oxide 400 MG TAB PO SCH ×2 (08:27→20:41)
[2022-09-06] MEDS: Cholecalciferol (Vitamin D3) 5,000 UNITS CAPSULE PO SCH ×2 (08:27→20:41)
[2022-09-06] MEDS: busPIRone HCl 5 MG TAB PO SCH ×2 (08:28→20:41)
[2022-09-06] MEDS: Aspirin 81 mg Enteric Coated Tablet PO SCH (08:28)
[2022-09-06] MEDS: Furosemide 40 MG TAB PO SCH (08:28)
[2022-09-06] MEDS: Clotrimazole 1% Cream 15 GM TUBE TOP SCH ×2 (08:29→20:42)
[2022-09-06] MEDS: Fluticasone Propionate Nasal Spray 16 gm Bottle NASAL SCH (08:29)
[2022-09-06] MEDS: Lantiseptic Ointment 130 GM JAR TOP SCH ×2 (08:30→20:42)
[2022-09-06] MEDS: HumaLOG 300 UNITS/3 ML VIAL SC PRN ×3 (11:53→20:48)
[2022-09-06] MEDS: Melatonin 3 MG TAB PO SCH (20:40)
[2022-09-06] MEDS: Atorvastatin Calcium 40 MG TAB PO SCH (20:41)
[2022-09-06] MEDS: Lantus 1000 UNITS/10 ML VIAL SC SCH (20:47)
[2022-09-07] MEDS: Levothyroxine Sodium 25 MCG TAB PO SCH (05:38)
[2022-09-07] MEDS: Cholecalciferol (Vitamin D3) 5,000 UNITS CAPSULE PO SCH ×2 (08:46→20:45)
[2022-09-07] MEDS: Empagliflozin 10 MG TAB PO SCH (08:46)
[2022-09-07] MEDS: Aspirin 81 mg Enteric Coated Tablet PO SCH (08:46)
[2022-09-07] MEDS: Furosemide 40 MG TAB PO SCH (08:46)
[2022-09-07] MEDS: NIFEdipine XL 30 MG TAB PO SCH ×2 (08:46→20:46)
[2022-09-07] MEDS: busPIRone HCl 5 MG TAB PO SCH ×2 (08:47→20:47)
[2022-09-07] MEDS: Metoprolol Tartrate 50 MG TAB PO SCH ×2 (08:47→20:45)
[2022-09-07] MEDS: HumaLOG 300 UNITS/3 ML VIAL SC PRN ×3 (08:47→17:10)
[2022-09-07] MEDS: Magnesium Oxide 400 MG TAB PO SCH ×2 (08:47→20:46)
[2022-09-07] MEDS: Fluticasone Propionate Nasal Spray 16 gm Bottle NASAL SCH (08:47)
[2022-09-07] MEDS: Fish Oil 1,000 MG CAP PO SCH (08:47)
[2022-09-07] MEDS: Clotrimazole 1% Cream 15 GM TUBE TOP SCH ×2 (12:12→20:49)
[2022-09-07] MEDS: Lantiseptic Ointment 130 GM JAR TOP SCH ×2 (12:13→20:48)
[2022-09-07] MEDS: Atorvastatin Calcium 40 MG TAB PO SCH (20:45)
[2022-09-07] MEDS: Melatonin 3 MG TAB PO SCH (20:46)
[2022-09-07] MEDS: Acetaminophen 325 MG TAB PO PRN (20:47)
[2022-09-07] MEDS: Lantus 1000 UNITS/10 ML VIAL SC SCH (20:49)
[2022-09-08] MEDS: Levothyroxine Sodium 25 MCG TAB PO SCH (07:25)
[2022-09-08] MEDS: HumaLOG 300 UNITS/3 ML VIAL SC PRN ×3 (08:15→17:08)
[2022-09-08] MEDS: Metoprolol Tartrate 50 MG TAB PO SCH ×2 (08:23→21:07)
[2022-09-08] MEDS: busPIRone HCl 5 MG TAB PO SCH ×2 (08:23→21:07)
[2022-09-08] MEDS: Magnesium Oxide 400 MG TAB PO SCH ×2 (08:23→21:07)
[2022-09-08] MEDS: Empagliflozin 10 MG TAB PO SCH (08:23)
[2022-09-08] MEDS: Aspirin 81 mg Enteric Coated Tablet PO SCH (08:23)
[2022-09-08] MEDS: NIFEdipine XL 30 MG TAB PO SCH ×2 (08:23→21:06)
[2022-09-08] MEDS: Furosemide 40 MG TAB PO SCH (08:23)
[2022-09-08] MEDS: Cholecalciferol (Vitamin D3) 5,000 UNITS CAPSULE PO SCH ×2 (08:23→21:06)
[2022-09-08] MEDS: Fish Oil 1,000 MG CAP PO SCH (08:23)
[2022-09-08] MEDS: Lantiseptic Ointment 130 GM JAR TOP SCH ×2 (08:24→21:08)
[2022-09-08] MEDS: Clotrimazole 1% Cream 15 GM TUBE TOP SCH ×2 (08:24→21:09)
[2022-09-08] MEDS: Fluticasone Propionate Nasal Spray 16 gm Bottle NASAL SCH (08:25)
[2022-09-08 11:05] LABS: Troponin I 0.065 ng/mL (< 0.028)
[2022-09-08] MEDS: Atorvastatin Calcium 40 MG TAB PO SCH (21:06)
[2022-09-08] MEDS: Melatonin 3 MG TAB PO SCH (21:07)
[2022-09-08] MEDS: Lantus 1000 UNITS/10 ML VIAL SC SCH (21:12)
[2022-09-09] MEDS: Levothyroxine Sodium 25 MCG TAB PO SCH (06:00)
[2022-09-09] MEDS: Acetaminophen 325 MG TAB PO PRN (06:00)
[2022-09-09] MEDS: busPIRone HCl 5 MG TAB PO SCH ×2 (08:15→20:34)
[2022-09-09] MEDS: NIFEdipine XL 30 MG TAB PO SCH ×2 (08:15→20:33)
[2022-09-09] MEDS: Aspirin 81 mg Enteric Coated Tablet PO SCH (08:16)
[2022-09-09] MEDS: Metoprolol Tartrate 50 MG TAB PO SCH ×2 (08:16→20:33)
[2022-09-09] MEDS: Furosemide 40 MG TAB PO SCH (08:16)
[2022-09-09] MEDS: Lantiseptic Ointment 130 GM JAR TOP SCH ×2 (08:16→20:36)
[2022-09-09] MEDS: Cholecalciferol (Vitamin D3) 5,000 UNITS CAPSULE PO SCH ×2 (08:16→20:33)
[2022-09-09] MEDS: Clotrimazole 1% Cream 15 GM TUBE TOP SCH ×2 (08:16→20:45)
[2022-09-09] MEDS: Fluticasone Propionate Nasal Spray 16 gm Bottle NASAL SCH (08:16)
[2022-09-09] MEDS: Empagliflozin 10 MG TAB PO SCH (08:16)
[2022-09-09] MEDS: Fish Oil 1,000 MG CAP PO SCH (08:16)
[2022-09-09] MEDS: Magnesium Oxide 400 MG TAB PO SCH ×2 (08:19→20:34)
[2022-09-09] MEDS: HumaLOG 300 UNITS/3 ML VIAL SC PRN ×4 (08:23→20:34)
[2022-09-09] MEDS ORDERED: Fluconazole 100 MG TAB PO SCH (19:02)
[2022-09-09] MEDS: Melatonin 3 MG TAB PO SCH (20:33)
[2022-09-09] MEDS: Lantus 1000 UNITS/10 ML VIAL SC SCH (20:34)
[2022-09-09] MEDS: Atorvastatin Calcium 40 MG TAB PO SCH (20:34)
[2022-09-10] MEDS: Levothyroxine Sodium 25 MCG TAB PO SCH (05:32)
[2022-09-10] MEDS: Acetaminophen 325 MG TAB PO PRN (05:32)
[2022-09-10] MEDS: Fish Oil 1,000 MG CAP PO SCH (08:56)
[2022-09-10] MEDS: HumaLOG 300 UNITS/3 ML VIAL SC PRN ×2 (08:57→12:23)
[2022-09-10] MEDS: Aspirin 81 mg Enteric Coated Tablet PO SCH (08:57)
[2022-09-10] MEDS: Magnesium Oxide 400 MG TAB PO SCH ×2 (08:57→21:39)
[2022-09-10] MEDS: Metoprolol Tartrate 50 MG TAB PO SCH ×2 (08:57→21:39)
[2022-09-10] MEDS: Furosemide 40 MG TAB PO SCH (08:57)
[2022-09-10] MEDS: Cholecalciferol (Vitamin D3) 5,000 UNITS CAPSULE PO SCH ×2 (08:57→21:39)
[2022-09-10] MEDS: NIFEdipine XL 30 MG TAB PO SCH ×2 (08:57→21:39)
[2022-09-10] MEDS: Clotrimazole 1% Cream 15 GM TUBE TOP SCH ×2 (08:58→21:44)
[2022-09-10] MEDS: busPIRone HCl 5 MG TAB PO SCH ×2 (08:58→21:39)
[2022-09-10] MEDS: Empagliflozin 10 MG TAB PO SCH (08:58)
[2022-09-10] MEDS: Lantiseptic Ointment 130 GM JAR TOP SCH ×2 (09:01→21:45)
[2022-09-10] MEDS: Fluticasone Propionate Nasal Spray 16 gm Bottle NASAL SCH (09:02)
[2022-09-10] MEDS: Atorvastatin Calcium 40 MG TAB PO SCH (21:39)
[2022-09-10] MEDS: Melatonin 3 MG TAB PO SCH (21:39)
[2022-09-10] MEDS: Lantus 1000 UNITS/10 ML VIAL SC SCH (21:46)
[2022-09-11] MEDS: Acetaminophen 325 MG TAB PO PRN ×3 (03:41→21:49)
[2022-09-11] MEDS: Levothyroxine Sodium 25 MCG TAB PO SCH (05:51)
[2022-09-11] MEDS: Fish Oil 1,000 MG CAP PO SCH (08:52)
[2022-09-11] MEDS: Aspirin 81 mg Enteric Coated Tablet PO SCH (08:52)
[2022-09-11] MEDS: busPIRone HCl 5 MG TAB PO SCH ×2 (08:52→21:58)
[2022-09-11] MEDS: Fluticasone Propionate Nasal Spray 16 gm Bottle NASAL SCH (08:52)
[2022-09-11] MEDS: Metoprolol Tartrate 50 MG TAB PO SCH ×2 (08:52→21:58)
[2022-09-11] MEDS: Cholecalciferol (Vitamin D3) 5,000 UNITS CAPSULE PO SCH ×2 (08:52→21:48)
[2022-09-11] MEDS: Empagliflozin 10 MG TAB PO SCH (08:52)
[2022-09-11] MEDS: HumaLOG 300 UNITS/3 ML VIAL SC PRN ×2 (08:53→11:44)
[2022-09-11] MEDS: Furosemide 40 MG TAB PO SCH (08:53)
[2022-09-11] MEDS: Lantiseptic Ointment 130 GM JAR TOP SCH ×2 (08:56→21:50)
[2022-09-11] MEDS: Clotrimazole 1% Cream 15 GM TUBE TOP SCH ×2 (08:56→21:50)
[2022-09-11] MEDS: NIFEdipine XL 30 MG TAB PO SCH ×2 (09:06→21:58)
[2022-09-11] MEDS: Magnesium Oxide 400 MG TAB PO SCH ×2 (09:08→21:48)
[2022-09-11 13:40] LABS: #Basophils 0.2 thou/uL (0.0-0.2); #Eosinphils 0.1 thou/uL (0.0-0.7); #Neutrophils 8.8 thou/uL (1.40-6.50); %Basophils 1.2 % (0.0-1.0); %Eosinophils 1.1 % (0.0-10.0); %Lymphocytes 22.9 % (21.0-51.0); %Monocytes 7.4 % (0.0-10.0); %Neutrophils 67.4 % (42.0-75.0); Hemoglobin 11.2 g/dL (12.0-16.0); Mean Corpuscular Hemoglobin 29.1 pg (27.0-31.0); Mean Corpuscular Volume 88.1 fl (78.0-98.0); Mean Platelet Volume 6.8 fL (7.4-10.4); Platelet Count 373 10x3/uL (130-400); RBC Distribution Width 14.7 % (11.5-14.5); Red Blood Cell (RBC) Count 3.86 mill/uL (4.20-5.40); White Blood Cell (WBC) Count 13.1 10x3/uL (4.8-10.8)
[2022-09-11 13:51] LABS: INR-International Normal Ratio 1.1; Prothrombin Time 14.3 sec (12.0-14.7)
[2022-09-11 13:53] LABS: D-Dimer Test 0.69 *mcg/mL (0.27-0.43)
[2022-09-11 14:01] LABS: Anion Gap 15 mmol/L (10-20); BUN (Urea Nitrogen) 34 mg/dL (9.8-20.1); Calc. Creatinine Clearance 41 mL/min (70-130); Calcium 9.7 mg/dL (7.8-10.44); Carbon Dioxide 24 mmol/L (23-31); Chloride 99 mmol/L (98-107); Estimated GFR 35; Glucose 186 mg/dL (83-110); Potassium 4.2 mmol/L (3.5-5.1); Sodium 134 mmol/L (136-145)
[2022-09-11] MEDS ORDERED: Furosemide 40 MG/4 ML VIAL SLOW IVP SCH (17:30)
[2022-09-11] MEDS ORDERED: Potassium Chloride 20 MEQ TAB PO SCH (17:45)
[2022-09-11 18:24] LABS: Bilirubin Negative (Negative); Blood, Urine Small (Negative); Glucose, Urine (Dipstick) >=1000 mg/dL (Negative); Ketone, Urine Negative (Negative); Leukocyte Small (Negative); Nitrite Negative (Negative); Protein, Urine (Dipstick) 30 mg/dL (Neg-Trace); Urobilinogen 0.2 mg/dL (Less than 2); pH, Urine 5.5 (5.0-9.0)
[2022-09-11 18:25] LABS: Clarity Cloudy (Clear)
[2022-09-11 18:42] LABS: Bacteria/HPF Rare-Few HPF (None Seen); RBC/HPF 0-3 HPF (0-3); Squamous Epithelial 0-3 HPF (0-3); WBC/HPF Greater Than 50 HPF (0-3); Yeast-Budding Rare HPF (None Seen)
[2022-09-11] MEDS ORDERED: Polyethylene Glycol 3350 17 GM Packet PO PRN (19:06)
[2022-09-11] MEDS: Melatonin 3 MG TAB PO SCH (21:48)
[2022-09-11] MEDS: Lantus 1000 UNITS/10 ML VIAL SC SCH (21:48)
[2022-09-11] MEDS: Atorvastatin Calcium 40 MG TAB PO SCH (21:48)
[2022-09-12] MEDS: Acetaminophen 325 MG TAB PO PRN (03:24)
[2022-09-12] MEDS: Levothyroxine Sodium 25 MCG TAB PO SCH (05:03)
[2022-09-12] MEDS: Furosemide 40 MG/4 ML VIAL SLOW IVP SCH ×2 (05:04→14:54)
[2022-09-12] MEDS ORDERED: Furosemide 40 MG TAB PO SCH (06:00)
[2022-09-12] MEDS: HumaLOG 300 UNITS/3 ML VIAL SC PRN ×3 (09:08→17:15)
[2022-09-12] MEDS: Fluticasone Propionate Nasal Spray 16 gm Bottle NASAL SCH (09:10)
[2022-09-12] MEDS: Fish Oil 1,000 MG CAP PO SCH (09:11)
[2022-09-12] MEDS: NIFEdipine XL 30 MG TAB PO SCH ×2 (09:11→21:24)
[2022-09-12] MEDS: Metoprolol Tartrate 50 MG TAB PO SCH ×2 (09:12→21:24)
[2022-09-12] MEDS: Magnesium Oxide 400 MG TAB PO SCH ×2 (09:13→21:23)
[2022-09-12] MEDS: Potassium Chloride 20 MEQ TAB PO SCH (09:13)
[2022-09-12] MEDS: Empagliflozin 10 MG TAB PO SCH (09:13)
[2022-09-12] MEDS: Cholecalciferol (Vitamin D3) 5,000 UNITS CAPSULE PO SCH ×2 (09:13→21:24)
[2022-09-12] MEDS: Aspirin 81 mg Enteric Coated Tablet PO SCH (09:14)
[2022-09-12] MEDS: Clotrimazole 1% Cream 15 GM TUBE TOP SCH ×2 (09:17→21:25)
[2022-09-12] MEDS: Lantiseptic Ointment 130 GM JAR TOP SCH ×2 (09:17→21:25)
[2022-09-12 09:23] LABS: Anion Gap 18 mmol/L (10-20); BUN (Urea Nitrogen) 30 mg/dL (9.8-20.1); Calc. Creatinine Clearance 42 mL/min (70-130); Calcium 9.5 mg/dL (7.8-10.44); Carbon Dioxide 19 mmol/L (23-31); Chloride 101 mmol/L (98-107); Estimated GFR 36; Glucose 199 mg/dL (83-110); Potassium 4.1 mmol/L (3.5-5.1); Sodium 134 mmol/L (136-145)
[2022-09-12] MEDS: Melatonin 3 MG TAB PO SCH (21:23)
[2022-09-12] MEDS: Lantus 1000 UNITS/10 ML VIAL SC SCH (21:24)
[2022-09-12] MEDS: Atorvastatin Calcium 40 MG TAB PO SCH (21:24)
[2022-09-13] MEDS: Furosemide 40 MG/4 ML VIAL SLOW IVP SCH ×2 (05:34→13:34)
[2022-09-13] MEDS: Levothyroxine Sodium 25 MCG TAB PO SCH (05:35)
[2022-09-13] MEDS: HumaLOG 300 UNITS/3 ML VIAL SC PRN ×3 (08:39→17:08)
[2022-09-13] MEDS: Fluticasone Propionate Nasal Spray 16 gm Bottle NASAL SCH (08:39)
[2022-09-13] MEDS: Potassium Chloride 20 MEQ TAB PO SCH (08:40)
[2022-09-13] MEDS: Cholecalciferol (Vitamin D3) 5,000 UNITS CAPSULE PO SCH ×2 (08:40→20:33)
[2022-09-13] MEDS: Metoprolol Tartrate 50 MG TAB PO SCH ×2 (08:40→20:33)
[2022-09-13] MEDS: Fish Oil 1,000 MG CAP PO SCH (08:41)
[2022-09-13] MEDS: NIFEdipine XL 30 MG TAB PO SCH ×2 (08:41→20:33)
[2022-09-13] MEDS: Aspirin 81 mg Enteric Coated Tablet PO SCH (08:41)
[2022-09-13] MEDS: Magnesium Oxide 400 MG TAB PO SCH ×2 (08:44→20:33)
[2022-09-13] MEDS: Empagliflozin 10 MG TAB PO SCH (08:52)
[2022-09-13] MEDS: Clotrimazole 1% Cream 15 GM TUBE TOP SCH ×2 (08:52→20:38)
[2022-09-13] MEDS: Lantiseptic Ointment 130 GM JAR TOP SCH ×2 (08:52→20:39)
[2022-09-13] MEDS ORDERED: Bisacodyl 10 MG SUPP PR PRN (09:59)
[2022-09-13] MEDS ORDERED: Loratadine 10 MG TAB PO SCH (10:15)
[2022-09-13] MEDS ORDERED: Benzonatate 100 MG CAP PO SCH (10:15)
[2022-09-13] MEDS: Acetaminophen 325 MG TAB PO PRN (13:33)
[2022-09-13] MEDS: Melatonin 3 MG TAB PO SCH (20:33)
[2022-09-13] MEDS: Atorvastatin Calcium 40 MG TAB PO SCH (20:33)
[2022-09-13] MEDS: ALPRAZolam 0.25 MG TAB PO PRN (20:34)
[2022-09-13] MEDS: Benzonatate 100 MG CAP PO PRN (20:34)
[2022-09-13] MEDS: Lantus 1000 UNITS/10 ML VIAL SC SCH (20:37)
[2022-09-14] MEDS: Ondansetron ODT 4 MG TAB PO PRN (05:11)
[2022-09-14] MEDS: Levothyroxine Sodium 25 MCG TAB PO SCH (05:12)
[2022-09-14] MEDS: Furosemide 40 MG/4 ML VIAL SLOW IVP SCH (05:12)
[2022-09-14] MEDS ORDERED: Ipratropium/Albuterol 3 ML NEB ONE (08:15)
[2022-09-14] MEDS: Fluticasone Propionate Nasal Spray 16 gm Bottle NASAL SCH (08:18)
[2022-09-14] MEDS: Potassium Chloride 20 MEQ TAB PO SCH (08:19)
[2022-09-14] MEDS: Metoprolol Tartrate 50 MG TAB PO SCH ×2 (08:19→21:25)
[2022-09-14] MEDS: Fish Oil 1,000 MG CAP PO SCH (08:19)
[2022-09-14] MEDS: Benzonatate 100 MG CAP PO PRN (08:19)
[2022-09-14] MEDS: Magnesium Oxide 400 MG TAB PO SCH ×2 (08:19→21:21)
[2022-09-14] MEDS: Aspirin 81 mg Enteric Coated Tablet PO SCH (08:20)
[2022-09-14] MEDS: Cholecalciferol (Vitamin D3) 5,000 UNITS CAPSULE PO SCH ×2 (08:20→21:24)
[2022-09-14] MEDS: NIFEdipine XL 30 MG TAB PO SCH ×2 (08:20→21:25)
[2022-09-14] MEDS: Loratadine 10 MG TAB PO SCH (08:20)
[2022-09-14] MEDS: Empagliflozin 10 MG TAB PO SCH (08:20)
[2022-09-14] MEDS: Lantiseptic Ointment 130 GM JAR TOP SCH ×2 (08:23→21:36)
[2022-09-14] MEDS: Clotrimazole 1% Cream 15 GM TUBE TOP SCH ×2 (08:23→21:36)
[2022-09-14] MEDS: HumaLOG 300 UNITS/3 ML VIAL SC PRN ×3 (08:24→17:17)
[2022-09-14] MEDS ORDERED: Ipratropium/Albuterol 3 ML NEB NEB SCH (08:30)
[2022-09-14] MEDS ORDERED: Furosemide 40 MG/4 ML VIAL SLOW IVP SCH (11:00)
[2022-09-14] MEDS: Ipratropium/Albuterol 3 ML NEB NEB PRN ×2 (16:15→22:51)
[2022-09-14] MEDS ORDERED: Potassium Chloride 20 MEQ TAB PO SCH (21:00)
[2022-09-14] MEDS: Atorvastatin Calcium 40 MG TAB PO SCH (21:20)
[2022-09-14] MEDS: Melatonin 3 MG TAB PO SCH (21:24)
[2022-09-14] MEDS: Lantus 1000 UNITS/10 ML VIAL SC SCH (21:33)
[2022-09-14] MEDS: ALPRAZolam 0.25 MG TAB PO PRN (22:48)
[2022-09-15] MEDS: Ipratropium/Albuterol 3 ML NEB NEB PRN ×2 (02:46→07:20)
[2022-09-15 03:21] LABS: #Basophils 0.1 thou/uL (0.0-0.2); #Eosinphils 0.4 thou/uL (0.0-0.7); #Lymphocytes 2.8 thou/uL (1.20-3.40); #Monocytes 1.2 thou/uL (0.11-0.59); #Neutrophils 10.5 thou/uL (1.40-6.50); %Basophils 0.6 % (0.0-1.0); %Lymphocytes 18.5 % (21.0-51.0); %Monocytes 8.1 % (0.0-10.0); %Neutrophils 69.8 % (42.0-75.0); Mean Corpuscular Hemoglobin 29.1 pg (27.0-31.0); Mean Corpuscular Volume 88.2 fl (78.0-98.0); Mean Platelet Volume 6.6 fL (7.4-10.4); Platelet Count 410 10x3/uL (130-400); RBC Distribution Width 14.9 % (11.5-14.5); Red Blood Cell (RBC) Count 3.77 mill/uL (4.20-5.40); White Blood Cell (WBC) Count 15.1 10x3/uL (4.8-10.8)
[2022-09-15 03:54] LABS: ALT (SGPT) 10 U/L (8-55); AST (SGOT) 10 U/L (5-34); Albumin 3.4 g/dL (3.4-4.8); Alkaline Phosphatase 57 U/L (40-110); Anion Gap 17 mmol/L (10-20); BUN (Urea Nitrogen) 45 mg/dL (9.8-20.1); Bilirubin, Total 0.6 mg/dL (0.2-1.2); Calc. Creatinine Clearance 30 mL/min (70-130); Calcium 9.6 mg/dL (7.8-10.44); Carbon Dioxide 24 mmol/L (23-31); Chloride 98 mmol/L (98-107); Estimated GFR 26; Globulin 3.9 g/dL (2.4-3.5); Glucose 231 mg/dL (83-110); Potassium 5.5 mmol/L (3.5-5.1); Protein, Total 7.3 g/dL (5.8-8.1); Sodium 133 mmol/L (136-145)
[2022-09-15] MEDS ORDERED: Morphine 4 MG/ML VIAL SLOW IVP SCH ×2 (04:00→07:30)
[2022-09-15] MEDS ORDERED: Furosemide 40 MG/4 ML VIAL SLOW IVP SCH ×3 (04:15→14:00)
[2022-09-15 04:23] LABS: CKMB 0.8 ng/mL (0-6.6)
[2022-09-15] MEDS: Levothyroxine Sodium 25 MCG TAB PO SCH (06:05)
[2022-09-15] MEDS ORDERED: Morphine 4 MG/ML VIAL ONE (07:25)
[2022-09-15] MEDS ORDERED: Morphine 2 MG/ML VIAL SLOW IVP SCH (07:30)
[2022-09-15 07:43] VITALS: TEMP 97.7
[2022-09-15 07:57] VITALS: BP 99/69
[2022-09-15] MEDS: Aspirin 81 mg Enteric Coated Tablet PO SCH (09:12)
[2022-09-15] MEDS: Cholecalciferol (Vitamin D3) 5,000 UNITS CAPSULE PO SCH (09:12)
[2022-09-15] MEDS: Fluticasone Propionate Nasal Spray 16 gm Bottle NASAL SCH (09:13)
[2022-09-15] MEDS: Loratadine 10 MG TAB PO SCH (09:13)
[2022-09-15] MEDS: Empagliflozin 10 MG TAB PO SCH (09:13)
[2022-09-15] MEDS: Lantiseptic Ointment 130 GM JAR TOP SCH (09:13)
[2022-09-15] MEDS: Clotrimazole 1% Cream 15 GM TUBE TOP SCH (09:13)
[2022-09-15] MEDS: Fish Oil 1,000 MG CAP PO SCH (09:13)
[2022-09-15] MEDS: Magnesium Oxide 400 MG TAB PO SCH (09:13)
[2022-09-15] MEDS: NIFEdipine XL 30 MG TAB PO SCH (09:14)
[2022-09-15] MEDS: Metoprolol Tartrate 50 MG TAB PO SCH (09:14)
[2022-09-15 11:26] VITALS: BMI 31.2
[2022-09-16] MEDS ORDERED: Furosemide 40 MG/4 ML VIAL SLOW IVP SCH (06:00)
== END 2022-09-15 15:30 | disposition expired ==
LOC: MADMS 21:05
PROVIDERS: ADMIT Family Medicine; ATTEND Family Medicine
DX: I13.0 Hypertensive heart and chronic kidney disease with heart failure and stage 1 through stage 4 chronic kidney disease, or unspecified chronic kidney disease (principal); I22.9 Subsequent ST elevation (STEMI) myocardial infarction of unspecified site; I50.33 Acute on chronic diastolic (congestive) heart failure; J96.01 Acute respiratory failure with hypoxia; J18.9 Pneumonia, unspecified organism; N30.00 Acute cystitis without hematuria; Z66 Do not resuscitate; E78.5 Hyperlipidemia, unspecified; E03.9 Hypothyroidism, unspecified; I25.119 Atherosclerotic heart disease of native coronary artery with unspecified angina pectoris; F41.9 Anxiety disorder, unspecified; M17.9 Osteoarthritis of knee, unspecified; E11.69 Type 2 diabetes mellitus with other specified complication; N18.30 Chronic kidney disease, stage 3 unspecified; D63.1 Anemia in chronic kidney disease; E11.22 Type 2 diabetes mellitus with diabetic chronic kidney disease; Z51.5 Encounter for palliative care; Z95.1 Presence of aortocoronary bypass graft; Z79.82 Long term (current) use of aspirin; Z91.013 Allergy to seafood; Z91.048 Other nonmedicinal substance allergy status; Z79.899 Other long term (current) drug therapy; Z79.4 Long term (current) use of insulin; Z90.49 Acquired absence of other specified parts of digestive tract; Z98.890 Other specified postprocedural states
CPT/HCPCS: 36415; 36416; 71045; 71275; 80048; 80053; 81003; 81015; 82274; 82550; 82553; 82565; 83880; 84484; 85014; 85018; 85025; 85049; 85379; 85610; 85730; 87086; G0283-GP; J1650; J1815; J1940; J1956; J2270; J7620; Q0162